=== PATIENT | female | born 1995 ===

== ENCOUNTER → 2023-09-14 12:46 | Outpatient (BNVA) | payer OTHER, SELFPAY | PROVIDERS: Visit Provider Surgery ==

== ENCOUNTER 2023-10-23 11:24 | Outpatient (AMB) | payer OTHER, SELFPAY ==
--- NOTE | 2023-10-23 12:04 | MHC.OFFVISWM ---
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 36.1 Allergies No Known Allergies Allergy (Verified 10/23/23 12:04) Medication List - Last Reconciled 10/23/23 by Roberth Roque MD polysaccharide iron complex (Ferrex) 150 mg PO DAILY HPI TV SE[employer] MACH[employer] W[employer] SWL BMI 36.1 HPI Details Start time: 12pm, End time: 12.35pm ?I spent 30 minutes speaking with the patient on the phone plus an additional 5 minutes reviewing and updating records for a total of 35 minutes HPI Comments History of Present Illness Details Previous weight loss efforts: keto diet, Herbalife, Fasting Wakes up: 6am, Sleeps: 11pm Breakfast: skips Lunch: 12pm (rice, beans, meat, pasta, fast food) Dinner: 7pm (rice, beans and meat) Snacks: 4pm (chips, pretzels, hummus), 8pm (chocolate and ice cream) Exercise: none Fluids: Fluids: none, tea: 4/wk 1 cup/d (Starbucks), soda: Regular Coke daily, juice: Brisk, ETOH: rare PFSH Medical History (Updated 10/23/23 @ 12:15 by Roberth Roque MD) GERD (gastroesophageal reflux disease) Assessment & Plan Assessment & Plan (1) Obesity: Code(s): E66.9 - Obesity, unspecified Qualifiers: Obesity type: due to excess calories Obesity classification: adult class 2 (BMI 35 - 39.9) Serious obesity comorbidity presence: without serious comorbidity Body mass index: BMI 36.0-36.9 Qualified Code(s): E66.09 - Other obesity due to excess calories; Z68.36 - Body mass index [BMI] 36.0-36.9, adult Plan: 1.? Plan for lap sleeve gastrectomy. If diaphragmatic or ventral hernias are present at time of surgery, these will be repaired laparoscopically as well. Risks and complications were discussed in detail including possible conversion to an open procedure, anastomotic leak, bleeding requiring transfusion, small bowel obstruction, , DVT and pulmonary embolism, cardiac, or pulmonary complications, as mcc complications such as anastomotic ulcer, insufficient weight loss and vitamin deficiencies. I emphasized the importance of close follow-up, adherence to instructions and good communication. 2. Nutritional counseling. Start with 2 CELEBRATE REBUILD protein (buy at [facility] [employer]) shakes (HALF scoop EACH in 8oz low fat unsweetened almond milk each) at 7am-9am and 10am-12pm, 2 protein bars (CELEBRATE protein bars, buy at [facility] [employer]) at 1pm-3pm and 4pm-6pm, dinner at 7pm (8 forks of protein and 8 forks of salad/vegetables) AND one more protein bar after dinner at 9pm-11pm. So you do 2 protein shakes, 3 protein bars and one meal per day. Meal to include lean meat (beef, fish, pork, turkey, chicken), or [place] yogurt, or egg whites, or beans with a salad with olive oil and fruits (berries, pears, apples, kiwi). Avoid salt, breads, potatoes, rice, pasta, desserts. 3. Each shake would be drunk slowly, like coffee in a period of 2 hours. 4. Cut each bar in 4 pieces and eat each piece in 30min ?to make each bar last 2 hours. 5. I emphasized the importance of measuring accurately the food portion and measure it when serving the food in plate 6. The meal portions include 8 full-size forks of meat and 8 full-size forks of salad. You always eat the meat portion but you can replace up to 4 forks for salad/vegetables with rice, potatoes or pasta, or a fruit ?if you like. The less you do it the better weight loss will be. 7. One full-size fork is what it can be scooped on the fork without falling aside and not what can be bit with the fork. Use regular forks like those you find in a typical restaurant. 8.? Please send me weight measurements as soon as possible and then once a week. Always include your diet and exercise plan. 9. Start walking outside daily, tracking calories with a goal of 300 calories per day, daily. Goal is to burn 2000 calories per week on exercise, which means either 300 calories daily, or 400 calories 5 days per week, or 500 calories 4 days per week, or 650 calories 3 days per week. 10. The best choice would be to purchase a stationary bike, elliptical or treadmill at home that can track calories. Let me know if you do so I can give you an exercise plan. 11.?It is important of avoiding and for at least 18 months postoperatively and has been discussed at the infosession. 12. Goal is to lose at least 1.5-2lbs per week 13. Goal to lose 10% of your weight before surgery, which is about 22lbs. Ultimate weight goal: 198lbs before surgery 14. Please follow the diet plan exactly without any change. If you don't like something about the plan or you feel hungry you need to communicate with me so I can help you revise the plan. You should not change the plan yourself. Orders: Orders Insulin Today E66.9 - Obesity, unspecified, K21.9 - Gastro-esophageal reflux disease without esophagitis Hemoglobin A1c Today E66.9 - Obesity, unspecified, K21.9 - Gastro-esophageal reflux disease without esophagitis H Pylori Breath Test Today E66.9 - Obesity, unspecified, K21.9 - Gastro-esophageal reflux disease without esophagitis Complete Blood Count Auto Diff Today E66.9 - Obesity, unspecified, K21.9 - Gastro-esophageal reflux disease without esophagitis IRON PROFILE Today E66.9 - Obesity, unspecified, K21.9 - Gastro-esophageal reflux disease without esophagitis Comprehensive Met. Panel Today E66.9 - Obesity, unspecified, K21.9 - Gastro-esophageal reflux disease without esophagitis C Reactive Protein Today E66.9 - Obesity, unspecified, K21.9 - Gastro-esophageal reflux disease without esophagitis US abdomen comp w elastography Today E66.9 - Obesity, unspecified, K21.9 - Gastro-esophageal reflux disease without esophagitis ECG 12 lead EKG Today E66.9 - Obesity, unspecified, K21.9 - Gastro-esophageal reflux disease without esophagitis FL upper GI w air Today E66.9 - Obesity, unspecified, K21.9 - Gastro-esophageal reflux disease without esophagitis Lipid Panel Today E66.9 - Obesity, unspecified, K21.9 - Gastro-esophageal reflux disease without esophagitis Vitamin B12 and Folate Today E66.9 - Obesity, unspecified, K21.9 - Gastro-esophageal reflux disease without esophagitis Zinc Today E66.9 - Obesity, unspecified, K21.9 - Gastro-esophageal reflux disease without esophagitis Vitamin B1 Today E66.9 - Obesity, unspecified, K21.9 - Gastro-esophageal reflux disease without esophagitis Vitamin A Today E66.9 - Obesity, unspecified, K21.9 - Gastro-esophageal reflux disease without esophagitis TSH reflex Free T4 Today E66.9 - Obesity, unspecified, K21.9 - Gastro-esophageal reflux disease without esophagitis Ferritin Today E66.9 - Obesity, unspecified, K21.9 - Gastro-esophageal reflux disease without esophagitis Vitamin D 25-OH Total Today E66.9 - Obesity, unspecified, K21.9 - Gastro-esophageal reflux disease without esophagitis XR chest 2V Today E66.9 - Obesity, unspecified, K21.9 - Gastro-esophageal reflux disease without esophagitis Referrals Nutrition/Dietitian Referral E66.9 - Obesity, unspecified, K21.9 - Gastro-esophageal reflux disease without esophagitis Behavioral Health Referral E66.9 - Obesity, unspecified, K21.9 - Gastro-esophageal reflux disease without esophagitis Telehealth Telehealth Location of provider rendering services: practice address Location of patient: address on file Patient Identification confirmed using: Name, : Yes Telehealth method: voice only Patient verbally consented to treatment: Yes Patient verbally consented to billing insurance company: Yes Patient informed of any privacy concerns related to visit: Yes Minutes spent on Phone/Video with Pt.: 35 Coding Level of Care Code Tele [facility] Pt Level 3 (36033) Diagnoses Class 2 obesity due to excess calories without serious comorbidity with body mass index (BMI) of 36.0 to 36.9 in adult E66.09; Z68.36 Obesity type: due to excess calories Obesity classification: adult class 2 (BMI 35 - 39.9) Serious obesity comorbidity presence: without serious comorbidity Body mass index: BMI 36.0-36.9 Time Spent (min) 35
[2023-10-23 12:13] VITALS: BMI 36.1
== END 2023-10-23 12:36 | disposition home or self-care (01) ==
LOC: HO.HBS 11:24
PROVIDERS: Visit Provider Surgery
DX: E66.09 Other obesity due to excess calories (principal); Z68.36 Body mass index [BMI] 36.0-36.9, adult
CPT/HCPCS: 99203

== ENCOUNTER → 2023-10-23 11:24 | Outpatient (BNVA) | payer OTHER, SELFPAY | PROVIDERS: Visit Provider Surgery ==

== ENCOUNTER 2023-10-26 12:18 | Outpatient (REF) | payer OTHER, SELFPAY ==
--- NOTE | ~2023-10-26 | XR_ITS ---
EXAMINATION: XR CHEST CLINICAL INFORMATION: Preop for weight management. COMPARISON: None available. TECHNIQUE: 2 views of the chest were obtained. FINDINGS: No pleural effusion. Mild degenerative changes in the thoracic spine. There is no gross pneumothorax. Heart size is normal. No pleural effusion. No focal consolidation to suggest pneumonia. XR/XR chest 2V IMPRESSION: No evidence of pneumonia.
--- NOTE | 2023-10-26 12:25 | ECG_ITS ---
Test Reason : OBESITY Blood Pressure : / mmHG Vent. Rate : 061 BPM Atrial Rate : 061 BPM P-R Int : 140 ms QRS Dur : 086 ms QT Int : 408 ms P-R-T Axes : 067 055 052 degrees QTc Int : 410 ms Normal sinus rhythm Normal ECG No previous ECGs available Referred By: Roberth Roque Electronically Signed By:Cleve Acevedo
[2023-10-26 12:36] LABS: MANUAL DIFF FLAG NO
[2023-10-26 12:59] LABS: Basophils Absolute Auto 0.1 X10*3/uL (0.0-0.2); Basophils Percent Auto 0.8 % (0-2); Eosinophils Absolute Auto 0.4 X10*3/uL (0.0-0.4); Eosinophils Percent Auto 3.9 % (0-4); Hematocrit 38.1 % (37.0-47.0); Hemoglobin 11.9 g/dl (12.0-16.0); Imm Gran Abs Auto 0.03 X10*3/uL (0.00-0.03); Imm Gran Pct Auto 0.3 % (0.0-0.4); Lymphocytes Absolute Auto 2.6 X10*3/uL (1.2-4.9); Lymphocytes Percent Auto 28.8 % (20-40); Mean Corpuscular HGB Conc 31.2 g/dl (31.0-35.0); Mean Corpuscular Hemoglobin 26.7 pg (27.0-33.0); Mean Corpuscular Volume 85.6 fL (80.0-98.0); Mean Platelet Volume 10.5 fL (9.4-12.3); Monocytes Absolute Auto 0.6 X10*3/uL (0.1-1.2); Monocytes Percent Auto 6.8 % (2-11); Neutrophils Absolute Auto 5.3 x10*3/uL (2.0-8.3); Neutrophils Percent Auto 59.4 % (45-73); Platelet Count 313 X10*3/uL (160-400); Red Blood Count 4.45 X10*6/uL (4.20-5.50); Red Cell Distribution Width 13.5 % (11.0-16.0)
[2023-10-26 13:21] LABS: Estimated Average Glucose 100 mg/dL; Hemoglobin A1c % 5.1 % (<6.0)
[2023-10-26 13:27] LABS: Alanine Aminotransferase 17 U/L (0-31); Albumin Level 4.1 g/dL (3.5-5.0); Alkaline Phosphatase 95 U/L (39-117); Anion Gap 13 (12-20); Aspartate Amino Transferase 13 U/L (5-31); Bilirubin Total 0.4 mg/dL (0.0-1.0); Blood Urea Nitrogen 19 mg/dL (9-16); C Reactive Protein 0.55 mg/dL (< or = 0.50); Calcium 9.8 mg/dL (8.4-10.2); Carbon Dioxide 24 mmol/L (22-29); Chloride 104 mmol/L (96-108); Cholesterol 143 mg/dL (<200); Estimated Glomerular Filt Rate > 60; Glucose Random 83 mg/dL (60-115); HDL Cholesterol 47 mg/dL (>40); Iron 63 mcg/dL (30-160); LDL Cholesterol Calculated 87 mg/dL (<100); Percent Iron Saturation 17 % (15-50); Potassium 4.4 mmol/L (3.3-5.1); Sodium 137 mmol/L (135-145); Total Iron Binding Capacity 368 mcg/dL (228-428); Total Protein 7.4 g/dL (6.5-8.0); Triglycerides 48 mg/dL (<150); Unsaturated Iron Binding 305 ug/dL
[2023-10-26 13:47] LABS: Ferritin 14 ng/mL (10-122); Insulin 6 uU/mL (2-29); Vitamin D 25-OH Total 13.7 ng/mL (>30)
[2023-10-26 13:58] LABS: Folate 7.7 ng/mL (> or = 4.0); Vitamin B12 291 pg/mL (200-900)
[2023-10-30 01:24] LABS: Zinc 65 mcg/dL (60-130)
[2023-10-30 23:28] LABS: Vitamin A 27 mcg/dL (38-98)
[2023-11-01 15:28] LABS: Vitamin B1 11 nmol/L (8-30)
== END 2023-10-26 12:19 | disposition home or self-care (01) ==
LOC: HO.LAB 12:18
PROVIDERS: Visit Provider Surgery
DX: E66.9 Obesity, unspecified (principal); K21.9 Gastro-esophageal reflux disease without esophagitis
CPT/HCPCS: 36415; 71046; 80053; 80061; 82306; 82607; 82728; 82746; 83036; 83525; 83540; 84425; 84443; 84590; 84630; 85025; 86140; 93005

== ENCOUNTER → 2023-10-26 12:25 | Outpatient (BNV) | payer OTHER, SELFPAY | PROVIDERS: Visit Provider Internal Medicine Cardiovascular Disease | DX: Z01.810 Encounter for preprocedural cardiovascular examination (principal) | CPT/HCPCS: 93010 ==

== ENCOUNTER 2023-11-09 07:56 | Outpatient (REF) | payer OTHER, SELFPAY ==
[2023-11-10 12:12] LABS: H Pylori Breath Test Negative (Negative)
== END 2023-11-09 07:57 | disposition home or self-care (01) ==
LOC: HO.LNP 07:56
PROVIDERS: Visit Provider Surgery
DX: E66.09 Other obesity due to excess calories (principal); Z68.36 Body mass index [BMI] 36.0-36.9, adult; K21.9 Gastro-esophageal reflux disease without esophagitis
CPT/HCPCS: 83013; 99211

== ENCOUNTER 2023-11-09 07:56 | Outpatient (AMB) | payer OTHER, SELFPAY ==
--- NOTE | 2023-11-09 13:34 | A.OFFVIS_ITS ---
Intake VS Expanded 11/09/23 13:46 Height 5 ft 5.5 in Weight 217 lb BMI 35.6 Body Fat % 42.2 Body Fat Mass 91.4 Fat Free Mass 125.4 Visceral Fat Rating 8 Body Water % 41.6 Body Water Mass 90.2 Basal Metabolic Rate/Score 1,780 Intake Visit Reasons: TV Follow Up SWL - 1ST Allergies No Known Allergies Allergy (Verified 10/23/23 12:04) HPI TV Follow Up SWL - 1ST HPI Details Start time: 1.31pm, End time: 1.49pm ?I spent 13 minutes speaking with the patient on the phone plus an additional 5 minutes reviewing and updating records for a total of 18 minutes HPI Comments History of Present Illness Details Overall weight loss: 3.2lbs, or 1.5% TBWL Is doing 2 Celebrate Rebuild protein shakes (HALF scoop in almond milk), 2 Celebrate protein bars and one meal (8 forks of protein and 8 forks of salad or vegetables) Exercise: Walking outside [facility] Medical History (Updated 10/23/23 @ 12:15 by Roberth Roque MD) GERD (gastroesophageal reflux disease) Assessment & Plan Assessment & Plan (1) Obesity: Code(s): E66.9 - Obesity, unspecified Qualifiers: Obesity type: due to excess calories Obesity classification: adult class 2 (BMI 35 - 39.9) Serious obesity comorbidity presence: without serious comorbidity Body mass index: BMI 36.0-36.9 Qualified Code(s): E66.09 - Other obesity due to excess calories; Z68.36 - Body mass index [BMI] 36.0-36.9, adult Plan: 1. Continue same nutritional plan of 2 Celebrate Rebuild protein shakes (HALF scoop in almond milk), 2 Celebrate protein bars and one meal (8 forks of protein and 8 forks of salad or vegetables) 2. Purchase a stationary bike and burn 300 calories per day, daily 3. Send me weight measurements weekly Telehealth Telehealth Location of provider rendering services: practice address Location of patient: address on file Patient Identification confirmed using: Name, : Yes Telehealth method: voice only Patient verbally consented to treatment: Yes Patient verbally consented to billing insurance company: Yes Patient informed of any privacy concerns related to visit: Yes Minutes spent on Phone/Video with Pt.: 18 Coding Level of Care Code Tele Est Pt Level 2 (06603) Diagnoses Class 2 obesity due to excess calories without serious comorbidity with body mass index (BMI) of 36.0 to 36.9 in adult E66.09; Z68.36 Obesity type: due to excess calories Obesity classification: adult class 2 (BMI 35 - 39.9) Serious obesity comorbidity presence: without serious comorbidity Body mass index: BMI 36.0-36.9 Time Spent (min) 18
[2023-11-09 13:46] VITALS: BMI 35.6
== END 2023-11-09 13:49 | disposition home or self-care (01) ==
LOC: HO.HBS 07:56
PROVIDERS: Visit Provider Surgery
DX: E66.09 Other obesity due to excess calories (principal); Z68.36 Body mass index [BMI] 36.0-36.9, adult
CPT/HCPCS: 99212

== ENCOUNTER 2023-11-16 14:42 | Outpatient (AMB) | payer OTHER, SELFPAY ==
--- NOTE | 2023-11-16 14:23 | MHC.AMNUTRGE ---
Intake Intake Visit Reasons: VIDEO Initial Nutrition [employer] Allergies No Known Allergies Allergy (Verified 10/23/23 12:04) HPI Nutrition Presentation Reason for consult elevated BMI Diet Assmnt Details In the beginning of the program, felt the plan was difficult in the beginning dinner: zucchini and chicken or pasta and chicken or salad and chicken. wants ideas to help with variety. She also reports hx of emotional eating (sadness) but she now understands this is a habit she needs to work on. [employer] online classes: none, was having issues accessing them, reached out to the office but never got a response. 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 [facility] [employer] program in [place] but got worried about surgery and dropped out Dietary counseling reduction Who buys your food self Who prepares/cooks your food self Meal frequency regular: lunch, dinner (11pm ) and snacks (during work - chips, mario hummus, ccandy ) and never: breakfast Lifestyle Eating out 4 or more times/week Food frequency Dairy: several times weekly (almond/or oatmilk ), Fruit: several times weekly, Vegetables: several times weekly, Grains/pasta/breads/cereal (carbs): daily, Meats/poultry/fish (protein): daily, Meat substitutes/nuts/seeds/legumes: daily, Processed foods/meats: daily (likes tuna but dislikes all other ), Water: daily, Soda: daily, Juice: daily, Coffee: never and Sports/energy drinks: never Diagnosis Nutrition problem #1 overweight/obesity As related to (etiology) #1 excess energy intake and physical inactivity As evidenced by (sign/symptom) #1 high BMI Monitoring/Goals Nutrition problem monitoring total energy intake, level of knowledge/skill, total PRO intake, total CHO intake and weight Outcome progress progressing Learning/Education Readiness to learn excellent Stages of change action Educational materials provided Yes Most Recent Diabetes Results: Cholesterol 143 mg/dL (<200) 10/26/23 HDL Cholesterol 47 mg/dL (>40) 10/26/23 Triglycerides 48 mg/dL (<150) 10/26/23 Creatinine 0.86 mg/dL (0.5-1.4) 10/26/23 Blood Urea Nitrogen 19 mg/dL (9-16) H 10/26/23 Sodium 137 mmol/L (135-145) 10/26/23 Potassium 4.4 mmol/L (3.3-5.1) 10/26/23 Chloride 104 mmol/L (96-108) 10/26/23 Carbon Dioxide 24 mmol/L (22-29) 10/26/23 Calcium 9.8 mg/dL (8.4-10.2) 10/26/23 AST 13 U/L (5-31) 10/26/23 ALT 17 U/L (0-31) 10/26/23 Total Protein 7.4 g/dL (6.5-8.0) 10/26/23 Albumin 4.1 g/dL (3.5-5.0) 10/26/23 [facility] Medical History (Updated 11/09/23 @ 14:06 by Roberth Roque MD) GERD (gastroesophageal reflux disease) Assessment & Plan Assessment & Plan (1) Obesity (BMI 30-39.9): Code(s): E66.9 - Obesity, unspecified Plan provided recipe resources and ideas for meals. Helped her access online classes.. dimitris be seen again when she completes classes for review. Telehealth Telehealth Location of provider rendering services: practice address Location of patient: address on file Patient Identification confirmed using: Name, : Yes Telehealth method: video Patient verbally consented to treatment: Yes Patient verbally consented to billing insurance company: Yes Patient informed of any privacy concerns related to visit: Yes Minutes spent on Phone/Video with Pt.: 30 Coding Level of Care Code Nutr Indiv Intake (37341) Diagnoses Obesity (BMI 30-39.9) E66.9 Time Spent (min) 30
== END 2023-11-16 14:47 | disposition home or self-care (01) ==
LOC: HO.HBS 14:42
PROVIDERS: Visit Provider Dietitian, Registered
DX: E66.9 Obesity, unspecified (principal)

== ENCOUNTER → 2023-11-16 14:42 | Outpatient (BNVA) | payer OTHER, SELFPAY | PROVIDERS: Visit Provider Dietitian, Registered | DX: E66.9 Obesity, unspecified (principal); Z71.3 Dietary counseling and surveillance | CPT/HCPCS: 97802 ==

== ENCOUNTER 2023-11-27 12:48 | Outpatient (AMB) | payer OTHER, SELFPAY ==
--- NOTE | 2023-11-27 12:45 | A.OFFWM_ITS ---
Intake Intake Visit Reasons: VIDEO Intake Allergies No Known Allergies Allergy (Verified 10/23/23 12:04) [facility] Medical History (Updated 11/27/23 @ 13:15 by More Merida) GERD (gastroesophageal reflux disease) Behavioral Health Assessment Weight Management Therapy Therapy Notes Details Pt is looking to have weight loss surgery evaluation to help improve her health and quality of life. Pt stated that she has never gone to therapy and has had some difficulties with feeling insecure about her body and her weight. She has no history of problems with drugs or alcohol. No legal involvement and no hx of inpatient psychiatric. Presenting Concerns Referral Source provider Reason for referral weight loss surgery evaluation Precipitating Event obesity Living Situation Current Living Situation Rent At risk of losing current housing? No Satisfied with current living situation? Yes Comments Pt lives with her fimerari. Food/Weight/Diet Expectations of change weight loss and maintenance History/Relationship with food Pt stated that she would emotionally eat in the past for comfort. Fast food, candy, Malay food. She would snack into the evening. Also eats fast. History/Relationship with weight Pt is at her heaviest around 225lbs. At her lowest she was 150lbs from age 10 until college. Then she went up to 176 through her 20's, after the pandemic she reached 200lbs. History/Relationship with dieting various diets Binge Eating Do you frequently eat large amounts of food in short periods of time, not feeling physically hungry? No Do you feel out of control when you eat a large amount of food in a short period of time? No Do you eat large amounts of food rapidly and typically alone? Yes Night Eating Do you wake up at least once during the night to eat? No If you wake up in the night, do you find that it is necessary to eat something in order to fall back asleep? No Do you have little or no appetite in the morning and feel very hungry in the evening, often overeating between dinner and when you go to bed? Yes Social History Family history and relationship Pt is single and lives with her fiance. She was born and raised in [facility] by her mother and father who were not together but co parented. She has two brothers from her mother and from her father she has 5 siblings. She is the only child of the same parents. Parental/Familial recreational counselor obligations none Developmental history and status none known Cultural/Ethnic information Legal Involvement and History Current or historical involvement with the legal system? none reported Education Highest grade completed technical medical school for phlebotomy. Preferred learning style Auditory, Verbal, Written, Learn by doing and Visual Currently enrolled in educational program? No Interested in further educational program? No Educational Interests/Skills Starting work at [employer] [place] on Sunday. 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 Employment Employment Status [employer] Wants help to find employment? No Meaningful activities exercise on the bike, Financial Situation Describe current financial situation Comfortable Financial assistance? None Service Service? No Mental Health and Addiction Treatment Current/Past substance abuse? No Current/Past addictive behavior concerns? No Pain Screening Current pain? Yes Pain in the last few months? No Medications Is the patient compliant with medications? Yes Does the patient have Grier Guardian in place? Not applicable Does the patient use complimentary health approaches? No Trauma/Abuse History History of trauma? Yes Questionnaires PHQ-9 Over the last 2 weeks, how often have you been bothered by any of the following problems? 1. Little interest or pleasure in doing things: several days 2. Feeling down, depressed, or hopeless: several days 3. Trouble falling or staying asleep, or sleeping too much: nearly every day 4. Feeling tired or having little energy: nearly every day 5. Poor appetite or overeating: several days 6. Feeling bad about yourself - or that you are a failure or have let yourself or your family down: several days 7. Trouble concentrating on things, such as reading the newspaper or watching television: not at all 8. Moving or speaking so slowly that other people could have noticed. Or the opposite - being so fidgety or restless that you have been moving around a lot more than usual: not at all 9. Thoughts that you would be better off or of hurting yourself in some way: not at all Total score: 10 Source: Developed by Drs. Rene Quigley, Kylah Ren, Cm Brewster and colleagues, with an educational jaylin from [employer]. Binge Eating Scale Group 1 A. I don't feel self-conscious about my wt. or body size when I'm with others. B. I feel concerned about how I look to others, but it normally does not make me fell disappointed with myself C. I do get self-conscious about my appearance and wt. which makes me feel disappointed in myself. D. I feel very self-conscious about my wt. and frequently I feel intense shame and disgust for myself. I try to avoid social contacts because of my self- consciousness. Response Group 1: C Group 2 A. I don't have any difficulty eating slowly in the proper manner. B. Although I seem to gobble down foods, I don't end up feeling stuffed because of eating to much. C. At times, I tend to eat quickly and then, I feel uncomfortably full afterwards. D. I have the habit of bolting down my food, without really chewing it. When this happens I usually feel uncomfortably stuffed because I've eaten to much. Response Group 2: C Group 3 A. I feel capable to control my eating urges when I want to. B. I feel like I have failed to control my eating more than the average person. C. I feel utterly helpless when it comes to feeling in control of my eating urges. D. Because I feel so helpless about controlling my eating I have become very desperate about trying to get control. Response Group 3: C Group 4 A. I don't have the habit of eating when I'm bored. B. I sometimes eat when I'm bored, but often I'm able to get busy and get my mind off food. C. I have a regular habit of eating when I'm bored, but occasionally, I can use some other activity to get my mind off eating. D. I have a strong habit of eating when I'm bored. Nothing seems to help me breath the habit. Response Group 4: D Group 5 A. I'm usually physically hungry when I eat something. B. Occasionally, I eat something on impulse even though I really am not hungry. C. I have the regular habit of eating foods, that I might not really enjoy, to satisfy a hungry feeling even though physically, I don't need the food. D. Although I'm not physically hungry, I get a hungry feeling in my mouth that only seems to be satisfied when I eat a food, like sandwich, that fills my mouth. Sometimes, when I eat the food to satisfy my mouth hunger, I then spit the food out so I won't gain weight. Response Group 5: C Group 6 A. I don't feel any guilt or self-hate after I overeat. B. After I overeat, occasionally I feel guilt or self-hate. C. Almost all the time I experience strong guilt or self-hate after I overeat. Response Group 6: C Group 7 A. I don't lose total control of my eating when dieting even after periods when I overeat. B. Sometimes when I eat a forbidden food on a diet, I feel like I blew it and eat even more. C. Frequently, I have the habit of saying to myself, I've blown it now, why not go all the way, when I overeat on a diet. When that happens I eat more. D. I have a regular habit of starting a strict diets for myself but I break the diets by going on an eating binge. My life seems to be either a feast or famine. Response Group 7: A Group 8 A. I rarely eat so much food that I feel uncomfortably stuffed afterwards. B. Usually about once a month, I each such a quantity of food, I end up feeling very stuffed. C. I have regular periods during the month when I eat large amounts of food, either at mealtime or at snacks. D. I eat so much food that I regularly feel quite uncomfortable after eating and sometimes a bit nauseous. Response Group 8: C Group 9 A. My level of calorie intake does not go up very high or go down very low on a regular basis. B. Sometimes after I overeat, I will try to reduce my caloric intake to almost nothing to compensate for the excess calories I've eaten. C. I have a regular habit of overeating during the night. It seems that my routine is not to be hungry in the morning but overeat in the evening. D. In my adult years, I have had week-long periods where I practically starve myself. This follows periods when I overeat. It seems I live a life of either feast or famine. Response Group 9: C Group 10 A. I usually am able to stop eating when I want to. I know when enough is enough. B. Every so often, I experience a compulsion to eat which I can't seem to control. C. Frequently, I experience strong urges to eat which I seem unable to control, but at other times I can control my eating urges. D. I feel incapable of controlling urges to eat. I have a fear of not being able to stop eating voluntarily. Response Group 10: C Group 11 A. I don't have any problem stopping eating when I feel full. B. I usually can stop eating when I feel full but occasionally overeat leaving me feeling uncomfortably stuffed. C. I have a problem stopping eating once I start and usually I feel uncomfortably stuffed after I eat a meal. D. Because I have a problem not being able to stop eating when I want, I sometimes have to induce vomiting to relieve my stuffed feeling. Response Group 11: A Group 12 A. I seem to eat just as much when I'm with others, Family social gatherings as when I'm by myself. B. Sometimes, when I'm with other persons, I don't eat as much as I want to eat because I'm self-conscious about my eating. C. Frequently, I eat only a small amount of food when others are present, because I'm very embarrassed about my eating. D. I feel so ashamed about overeating that I pick times to overeat when I know no one will see me. I feel like a closet eater. Response Group 12: A Group 13 A. I eat three meals a day with only an occasional between meal snack. B. I eat 3 meals a day, but I also normally snack between meals. C. When I am snacking heavily, I get in the habit of skipping regular meals. D. There are regular periods when I seem to be continually eating, with no planned meals. Response Group 13: B Group 14 A. I don't think much about trying to control unwanted eating urges. B. At least some of the time, I feel my thoughts are pre-occupied with trying to control my eating urges. C. I feel that frequently I spend much time thinking about how much I ate or about trying not to eat anymore. D. It seems to me that most of my waking hours are pre-occupied by thoughts about eating or not eating. I feel like I'm constantly struggling not to eat. Response Group 14: C Group 15 A. I don't think about food a great deal. B. I have strong craving for food but they last only for brief periods of time. C. I have days when I can't seem to think about anything else but food. D. Most of my days seem to be pre-occupied with thoughts about food. I feel like I live to eat. Response Group 15: B Group 16 A. I usually know whether or not I'm physically hungry. I take the right portion of food to satisfy me. B. Occasionally, I feel uncertain about knowing whether or not I'm physically hungry. A these times it's hard to know how much food I should take to satisfy me. C. Even though I might know how many calories I should eat, I don't have any idea what is a normal amount of food for me. Response Group 16: B Binge Eating Score: 24 Score less than 17 Minimal Risk Score between 18-26 Moderate Risk Score between 27-46 High Risk Assessment & Plan Assessment & Plan (1) BMI 36.0-36.9,adult: Code(s): Z68.36 - Body mass index [BMI] 36.0-36.9, adult (2) Depression, unspecified: Code(s): F32.A - Depression, unspecified Plan Patient reported some struggles with emotional eating in the past and insecurities. She is doing well now, would like to join therapy group. She is cleared for surgery and should continue all support services. Telehealth Telehealth Location of provider rendering services: other Location of patient: address on file Patient Identification confirmed using: Name, : Yes Telehealth method: voice only Patient verbally consented to treatment: Yes Patient verbally consented to billing insurance company: Yes Patient informed of any privacy concerns related to visit: Yes Minutes spent on Phone/Video with Pt.: 45 Coding Level of Care Code Tele Psy Diag Eval (03564) Diagnoses BMI 36.0-36.9,adult Z68.36 Depression, unspecified F32.A Time Spent (min) 45
== END 2023-11-27 13:18 | disposition home or self-care (01) ==
LOC: HO.HBST 12:48
PROVIDERS: Visit Provider Counselor Mental Health
DX: Z68.36 Body mass index [BMI] 36.0-36.9, adult (principal); F32.A Depression, unspecified
CPT/HCPCS: 90791

== ENCOUNTER → 2023-11-27 12:48 | Outpatient (BNVA) | payer OTHER, SELFPAY | PROVIDERS: Visit Provider Counselor Mental Health ==

== ENCOUNTER 2023-11-30 09:07 | Outpatient (REF) | payer OTHER, SELFPAY ==
--- NOTE | ~2023-11-30 | US_ITS ---
EXAMINATION: US COMPLETE ABDOMEN WITH LIVER ELASTOGRAPHY CLINICAL INFORMATION: Obesity. COMPARISON: None available. TECHNIQUE: Real-time imaging of the abdominal viscera. Noninvasive ultrasound liver fibrosis assessment is performed using Charito ElastPQ point quantification shear wave elastography (2D-SWE) with a C5-2 MHz transducer. Multiple elastography samples are obtained. FINDINGS: PANCREAS: Poorly visualized. ABDOMINAL AORTA: The proximal, middle, and distal aortic segments appear unremarkable in caliber. INFERIOR VENA CAVA: Visualized portions appear unremarkable. LIVER: Normal. The liver demonstrates normal size, contour and echogenicity. No focal lesion or intrahepatic biliary duct dilatation. The right lobe measures 12.5 cm in length. The left lobe measures 8.9 cm in length. Portal flow is towards the liver (hepatopetal). Shear wave liver elastography median stiffness is 1.47 m/s (reference: normal median stiffness is 1.3 m/s or less). IQR/median stiffness to assess sampling precision is 0.16 (reference: good quality data set is IQR/median stiffness of 0.15 or less). GALLBLADDER: The gallbladder is physiologically distended without evidence of stones, sludge, polyps, wall thickening or pericholecystic fluid. COMMON BILE DUCT: Normal in caliber measuring 0.4 cm in diameter. RIGHT KIDNEY: No hydronephrosis. No renal calculi or focal parenchymal lesion identified. The kidney measures 10.3 cm in maximum dimension. LEFT KIDNEY: No hydronephrosis. No renal calculi or focal parenchymal lesion identified. The kidney measures 10.8 cm in maximum dimension. SPLEEN: The spleen measures 9.2 cm in maximum dimension. FREE FLUID: None. US/US abdomen comp w elastography IMPRESSION: Liver elastography: Although measurements appear to rule out compensated advanced chronic liver disease, there is statistical variability of the sampling which decreases accuracy. REFERENCE: Society of Radiologists in Ultrasound Liver Stiffness Thresholds (2020): LIVER STIFFNESS THRESHOLDS: *Liver Stiffness equal or less than 1.3 m/s: High probability of being normal. *Liver Stiffness less than 1.7 m/s: In the absence of other known clinical signs, rules out compensated advanced chronic liver disease. *Liver Stiffness 1.7-2.1 m/s: Suggestive of compensated advanced chronic liver disease but need further test for confirmation. *Liver Stiffness over 2.1 m/s: Rules in compensated advanced chronic liver disease. *Liver Stiffness over 2.4 m/s: Suggestive of clinically significant portal hypertension. QUALITY OF DATA SET: *IQR/Median value equal or less than 0.15 implies a quality data set. *IQR/Median value over 0.15 implies a poor quality data set. SIGNIFICANT CHANGE FROM PRIOR EXAM: Significant change if liver stiffness measurement is 10% or greater from prior exam. OTHER CONSIDERATIONS: The stage of liver fibrosis may be overestimated in the setting of acute hepatitis, liver inflammation, elevated liver function tests, hepatic vascular congestion, obstructive cholestasis, non-fasting state, and infiltrative diseases such as amyloidosis and lymphoma. In some patients with NAFLD, the liver stiffness thresholds for compensated advanced chronic liver disease may be lower. In causes other than viral hepatitis and NAFLD, liver stiffness thresholds are not well established.
== END 2023-11-30 09:08 | disposition home or self-care (01) ==
LOC: HO.US 09:07
PROVIDERS: Visit Provider Surgery
DX: E66.9 Obesity, unspecified (principal); K21.9 Gastro-esophageal reflux disease without esophagitis
CPT/HCPCS: 76700; 76981

== ENCOUNTER 2023-12-19 08:55 | Outpatient (REF) | payer OTHER, SELFPAY ==
--- NOTE | ~2023-12-19 | FL_ITS ---
EXAMINATION: XR FLUOROSCOPY UPPER GI WITH AIR CLINICAL INFORMATION: Evaluation prior to bariatric surgery COMPARISON: None TECHNIQUE: Fluoroscopic air contrast upper GI examination was performed utilizing standard techniques with thin and thick barium and effervescent granules. Numerous spot images were obtained. FINDINGS: Dual and single contrast images of the esophagus demonstrate normal caliber, contour, and mucosal pattern. No evidence of stricture, mass, or ulcerations identified. Esophageal peristalsis was normal. Very small type I hiatal hernia is present. Significant gastroesophageal reflux is seen up to the thoracic inlet. Dual contrast and single contrast images of the stomach demonstrated a normal contour. The gastric mucosal folds appear mildly thickened. No masses or ulcerations are seen. Contrast freely passed into the gastric antrum and duodenal bulb without delay. Single and air-contrast images of the duodenal bulb demonstrate no abnormality. The duodenal sweep has a normal appearance, course, and mucosal fold appearance. The imaged proximal jejunum has a normal fold pattern and caliber. FLUOROSCOPY TIME: 3 minutes 12 seconds Number of Spot Images: 14 Number of Cine: 9 DOSE AREA PRODUCT: 2170 uGy-m2 (microgray-meter squared) FL/FL upper GI w air IMPRESSION: 1. Very small type I hiatal hernia 2. Severe gastroesophageal reflux 3. Thickened gastric mucosal folds that likely represent gastritis. This procedure was performed by Austyn Kathleen PA-C, and supervised by Dr. Ramos
== END 2023-12-19 08:56 | disposition home or self-care (01) ==
LOC: HO.XRAY 08:55
PROVIDERS: Visit Provider Surgery
DX: K21.9 Gastro-esophageal reflux disease without esophagitis (principal); E66.9 Obesity, unspecified
CPT/HCPCS: 74246

== ENCOUNTER → 2023-12-19 08:56 | Outpatient (BNV) | payer OTHER, SELFPAY | PROVIDERS: Visit Provider Physician Assistant Surgical | DX: Z01.818 Encounter for other preprocedural examination (principal); E66.01 Morbid (severe) obesity due to excess calories | CPT/HCPCS: 74246 ==

== ENCOUNTER 2023-12-31 08:00 | Outpatient (AMB) | payer OTHER, SELFPAY ==
--- NOTE | 2023-12-31 09:30 | A.OFFVIS_ITS ---
Intake VS Expanded 12/31/23 09:38 Height 5 ft 5.5 in Weight 217 lb 5 oz BMI 35.6 Body Fat % 44.9 Body Fat Mass 97.6 Fat Free Mass 119.9 Visceral Fat Rating 17.9 Body Water % 37.8 Body Water Mass 82.2 Basal Metabolic Rate/Score 1,544 Intake Visit Reasons: TV Follow Up SWL Allergies No Known Allergies Allergy (Verified 10/23/23 12:04) HPI TV Follow Up SWL HPI Details Start time: 9.28am, End time: 9.48am ?I spent 15 minutes speaking with the patient on the phone plus an additional 5 minutes reviewing and updating records for a total of 20 minutes HPI Comments History of Present Illness Details Is doing 2 Celebrate Rebuild shakes (1/2 scoop in almond milk), 2 Celebrate protein bars and one meal (8 forks of protein and 8 forks of salad or rice or pasta) Exercise: bike for 600 calories per week [facility] Medical History (Updated 11/27/23 @ 13:15 by More Merida) GERD (gastroesophageal reflux disease) Assessment & Plan Assessment & Plan (1) Obesity: Code(s): E66.9 - Obesity, unspecified Qualifiers: Obesity type: due to excess calories Obesity classification: adult class 2 (BMI 35 - 39.9) Serious obesity comorbidity presence: without serious comorbidity Body mass index: BMI 36.0-36.9 Qualified Code(s): E66.09 - Other obesity due to excess calories; Z68.36 - Body mass index [BMI] 36.0-36.9, adult Plan: 1. Change nutritional plan to two Celebrate Rebuild protein shakes (1/2 scoop in 8oz almond milk) at 7-9 and 10-12, 2 Celebrate protein bars at 1-3pm and 4-6pm, dinner at 7pm (8 forks of protein and 8 forks of salad, or 4 forks of salad and 4 forks of rice) and one more Celebrate bar at 9-11pm 2. Exercise: do the bike daily for 300 calories. Goal is to burn 2000 calories per week on the bike 3. Send me weight measurements weekly on Saturdays Telehealth Telehealth Location of provider rendering services: practice address Location of patient: address on file Patient Identification confirmed using: Name, : Yes Telehealth method: voice only Patient verbally consented to treatment: Yes Patient verbally consented to billing insurance company: Yes Patient informed of any privacy concerns related to visit: Yes Minutes spent on Phone/Video with Pt.: 20 Coding Level of Care Code Tele Est Pt Level 3 (13132) Diagnoses Class 2 obesity due to excess calories without serious comorbidity with body mass index (BMI) of 36.0 to 36.9 in adult E66.09; Z68.36 Obesity type: due to excess calories Obesity classification: adult class 2 (BMI 35 - 39.9) Serious obesity comorbidity presence: without serious comorbidity Body mass index: BMI 36.0-36.9 Time Spent (min) 20
[2023-12-31 09:38] VITALS: BMI 35.6
== END 2023-12-31 09:49 | disposition home or self-care (01) ==
PROVIDERS: Visit Provider Surgery
DX: E66.09 Other obesity due to excess calories (principal); Z68.36 Body mass index [BMI] 36.0-36.9, adult
CPT/HCPCS: 99213

== ENCOUNTER → 2023-12-31 08:00 | Outpatient (BNVA) | payer OTHER, SELFPAY | PROVIDERS: Visit Provider Surgery ==

== ENCOUNTER 2024-02-01 07:55 | Outpatient (AMB) | payer OTHER, SELFPAY ==
--- NOTE | 2024-02-01 08:56 | A.OFFVIS_ITS ---
VS Expanded 02/01/24 09:05 Height 5 ft 5.5 in Weight 209 lb 3 oz BMI 34.3 Body Fat % 42.7 Body Fat Mass 89.3 Fat Free Mass 119.9 Visceral Fat Rating 16.7 Body Water % 39.3 Body Water Mass 82.2 Basal Metabolic Rate/Score 1,544 Intake Visit Reasons: TV Pre Op LSG 02/12/24 Allergies No Known Allergies Allergy (Verified 02/01/24 08:57) Medication List - Last Reconciled 02/01/24 by Roberth Roque MD cholecalciferol (vitamin D3) 125 mcg PO DAILY iron,carbonyl-vitamin C 65 mg iron- 125 mg (Vitron-C) 1 tab PO DAILY mecobalamin (vitamin B12) 1,000 mcg sublingual DAILY ondansetron 4 mg PO Q12H pantoprazole 40 mg PO DAILY polyethylene glycol 3350 (Miralax) 17 grams PO DAILY polysaccharide iron complex (Ferrex) 150 mg PO DAILY sucralfate 10 mL PO BID vitamin A palmitate 10,000 units PO DAILY HPI HPI TV Pre Op LSG 02/12/24: Details: Start time: 8.53am, End time: 9.13am ?I spent 15 minutes speaking with the patient on the phone plus an additional 5 minutes reviewing and updating records for a total of 20 minutes HPI Comments Details: Overall weight loss: 10.9lbs, or 4.95% TBWL Is doing 2 Celebrate Rebuild shakes (1/2 scoop in almond milk), 2 Celebrate protein bars and one meal (8 forks of protein and 8 forks of salad or rice or pasta) Exercise: bike for 600 calories per week [facility] Medical History (Updated 11/27/23 @ 13:15 by More Merida) GERD (gastroesophageal reflux disease) Telehealth Telehealth Telehealth Platform: Telephone Location of provider rendering services: practice address Location of patient: address on file Patient Identification confirmed using: Name, : Yes Telehealth method: voice only Patient verbally consented to treatment: Yes Patient verbally consented to billing insurance company: Yes Patient informed of any privacy concerns related to visit: Yes Minutes spent on Phone/Video with Pt.: 20 Assessment & Plan Assessment & Plan (1) Obesity: Code(s): E66.9 - Obesity, unspecified Category: Medical Qualifiers: Obesity type: due to excess calories Obesity classification: adult class 2 (BMI 35 - 39.9) Serious obesity comorbidity presence: without serious comorbidity Body mass index: BMI 36.0-36.9 Qualified Code(s): E66.09 - Other obesity due to excess calories; Z68.36 - Body mass index [BMI] 36.0-36.9, adult Plan: 1. Plan for lap sleeve gastrectomy including upper GI endoscopy. All tests has been completed and reviewed and the patient is cleared for the surgery. ?If diaphragmatic or ventral hernias are present at time of surgery, these will be repaired laparoscopically as well. Risks and complications were discussed in detail including possible conversion to an open procedure, anastomotic leak, bleeding requiring transfusion, small bowel obstruction, , DVT and pulmonary embolism, cardiac, or pulmonary complications, as ferry terminal supervisor complications such as anastomotic ulcer, insufficient weight loss and vitamin deficiencies. I emphasized the importance of close follow-up, adherence to instructions and good communication. So far she has proven to be an excellent communicator and very compliant with all our directions accomplishing a great weight loss. I believe that she is an excellent candidate and she is ready. 2. Preop prescriptions were provided and explained the purpose of each one. Need to be purchased preop. Start Pantoprazole now as you get it from the pharmacy, 1 pill per day. Sucralfate and Zofran are for after surgery as needed. 3. Bowel prep: please do 7 packets ?of Miralax mixing each one with a an 8oz glass of water, crystal light, gatorade zero, or propel ?on 02/10/24 and the same amount on 02/11/24. The Miralax you begin with one packet at a time in 8oz water or crystal light, gatorade zero, or propel ?as early in the day as you can and you do them back to back until you finish them. Continue the protein shakes during? the bowel prep. 4. Needs to purchase 1oz medicine cups . 5. Needs to purchase Children's liquid Tylenol for postop pain control. 6. Avoid aspirin, motrin, Advil, Aleve, Ibuprofen, Naproxyn. Tylenol is OK. 7. She needs to purchase the Celebrate 4:1 protein shakes from the hospital's gift shop. 8. Will do basic preop blood work-up any day between Sunday02/04/24 and Sunday02/08/24 fasting for 12 hours and is scheduled to see the Anesthesiologist prior to the day of surgery. 9. Importance of adherence to postop folllow-up and recommendations was underscored and she understands that. 10. Stop food and bars as of tomorrow 02/02/24 and continue with 3 Celebrate Rebuild protein shakes (ONE scoop EACH in 8oz almond milk) at 8am-10am, 11am-1pm and 2pm-4pm and TWO more Celebrate Rebuild protein shake with TWO scoops EACH in 8oz of almond milk at 5pm-7pm and 8pm-10pm 11. No soups, broths or V8 12. The patient's?medical?history has been reviewed and they are considered low risk for post op DVT and therefore DVT prophylaxis is not considered necessary. Travel after surgery was reviewed. The patient has not disclosed any travel plans during the first 30 days after surgery and they have been advised that within the first 30 days after surgery any bus, plane, train or car travel over 2 hours in duration is contraindicated due to the possibility of developing blood clots from immobility. Any travel, needs to include periods of ambulation of 10 minutes in duration every 2 hours.? Patient was instructed to discuss any plans for travel during this period with their bariatric surgeon.? 13. Please take at the day of surgery the following medications: NONE 14. Stop any control pills and don't use them for one month after surgery 15. Absolutely no smoking or vaping, or marijuana until the surgery and for at least the first 4 weeks. Only nicotine patches are allowed. 16. Send me weight measurements today 02/01/24, on Sunday02/09/24 and then on Sunday02/12/24, the day of surgery before you go to the hospital. 17. Avoid any steroids by mouth for any reason. Let me know if someone prescribes them to you20. These instructions supersede anything else you read in the handbook, anything you watched in videos or classes or you were told by any other provider. If there is any conflict, you follow the above instructions Orders: Orders Comprehensive Met. Panel Today Prothrombin Time INR Today Partial Thromboplastin Time Today Complete Blood Count Auto Diff Today Hemoglobin A1c Today Insulin Today TSH reflex Free T4 Today Type and Screen Today C Reactive Protein Today Lipid Panel Today Medications: New ondansetron Only take one every 12 hours as needed if you have nausea 4 mg PO Q12H 20 tabs 0RF nausea and vomiting R11.0 - Nausea polyethylene glycol 3350 (Miralax) Mix each packet with 8oz of water, Crystal light, or Gatorade zero, or Propel and do 7 packets on 02/10/24 and another 7 packets on 02/11/24 17 grams PO DAILY 14 ea 0RF Z01.818 - Encounter for other preprocedural examination pantoprazole 40 mg PO DAILY 90 tabs 0RF K21.9 - Gastro-esophageal reflux disease without esophagitis sucralfate 10 mL PO BID 600 mL 2RF K21.9 - Gastro-esophageal reflux disease without esophagitis
[2024-02-01 09:05] VITALS: BMI 34.3
== END 2024-02-01 09:14 | disposition home or self-care (01) ==
LOC: HO.HBS 07:55
PROVIDERS: Visit Provider Surgery
DX: E66.09 Other obesity due to excess calories (principal); Z68.36 Body mass index [BMI] 36.0-36.9, adult
CPT/HCPCS: 99213

== ENCOUNTER → 2024-02-01 07:55 | Outpatient (BNVA) | payer OTHER, SELFPAY | PROVIDERS: Visit Provider Surgery ==

== ENCOUNTER → 2024-02-08 07:36 | Outpatient (BNVA) | payer OTHER, SELFPAY | PROVIDERS: Visit Provider Physician Assistant Surgical ==

== ENCOUNTER 2024-02-12 07:28 | Day surgery (SDC) | payer OTHER, SELFPAY ==
[2024-02-04 16:06] VITALS: BMI 33.9
[2024-02-08 07:33] LABS: MANUAL DIFF FLAG NO
[2024-02-08 07:48] LABS: Basophils Absolute Auto 0.1 X10*3/uL (0.0-0.2); Basophils Percent Auto 0.8 % (0-2); Eosinophils Absolute Auto 0.3 X10*3/uL (0.0-0.4); Eosinophils Percent Auto 4.6 % (0-4); Hematocrit 36.3 % (37.0-47.0); Hemoglobin 11.5 g/dl (12.0-16.0); Imm Gran Abs Auto 0.01 X10*3/uL (0.00-0.03); Imm Gran Pct Auto 0.1 % (0.0-0.4); Lymphocytes Absolute Auto 2.3 X10*3/uL (1.2-4.9); Lymphocytes Percent Auto 32.4 % (20-40); Mean Corpuscular HGB Conc 31.7 g/dl (31.0-35.0); Mean Corpuscular Hemoglobin 25.3 pg (27.0-33.0); Mean Corpuscular Volume 79.8 fL (80.0-98.0); Mean Platelet Volume 10.2 fL (9.4-12.3); Monocytes Absolute Auto 0.6 X10*3/uL (0.1-1.2); Monocytes Percent Auto 7.8 % (2-11); Neutrophils Absolute Auto 3.9 x10*3/uL (2.0-8.3); Neutrophils Percent Auto 54.3 % (45-73); Platelet Count 343 X10*3/uL (160-400); Red Blood Count 4.55 X10*6/uL (4.20-5.50); Red Cell Distribution Width 14.8 % (11.0-16.0); White Blood Count 7.2 X10*3/uL (4.8-10.8)
[2024-02-08 07:51] LABS: INTERNATIONAL NORM RATIO 1.1 (0.9-1.1); Prothrombin Time 13.7 SEC (11.1-13.3)
[2024-02-08 07:54] LABS: Partial Thromboplastin Time 33.9 SEC (26.0-36.8)
[2024-02-08 07:55] LABS: Estimated Average Glucose 100 mg/dL; Hemoglobin A1c % 5.1 % (<6.0)
[2024-02-08 08:20] LABS: Alanine Aminotransferase 19 U/L (0-31); Albumin Level 4.4 g/dL (3.5-5.0); Alkaline Phosphatase 96 U/L (39-117); Anion Gap 17 (12-20); Aspartate Amino Transferase 20 U/L (5-31); Bilirubin Total 0.3 mg/dL (0.0-1.0); Blood Urea Nitrogen 13 mg/dL (9-16); C Reactive Protein 0.67 mg/dL (< or = 0.50); Calcium 9.7 mg/dL (8.4-10.2); Carbon Dioxide 19 mmol/L (22-29); Chloride 108 mmol/L (96-108); Cholesterol 138 mg/dL (<200); Creatinine Clr Calc Pharmacy 101.8; Estimated Glomerular Filt Rate > 60; Glucose Random 87 mg/dL (60-115); HDL Cholesterol 54 mg/dL (>40); LDL Cholesterol Calculated 73 mg/dL (<100); Potassium 3.8 mmol/L (3.3-5.1); Sodium 140 mmol/L (135-145); Total Protein 7.7 g/dL (6.5-8.0); Triglycerides 58 mg/dL (<150)
[2024-02-08 08:34] LABS: Insulin 9 uU/mL (2-29); TSH reflex Free T4 1.49 uIU/mL (0.32-4.0)
--- NOTE | 2024-02-11 09:33 | P.CONAN_ITS ---
Documented by User: Izabel Tirado NP 02/11/24 09:34 HPI - Anesthesia Eval Consult details Narrative: 28yo F for Gastrectomy Sleeve,EGD,possible diaphragmatic hernia,possible ventral hernia,possible open, PMFSH Active Problems Active Problems: All Active Problems Depression, unspecified (Acute) Anemia (Acute) Vitamin A deficiency (Acute) BMI 36.0-36.9,adult (Acute) Obesity (Acute) GERD (gastroesophageal reflux disease) (Acute) Past Medical History Medical History Anemia Depression GERD (gastroesophageal reflux disease) Surgical History Surgical History No pertinent past surgical history Social History Social History Are you a primary career center director to a significant other at home: No Do you presently have visiting nurse or other home services: No Patient Tobacco Use Status: Former Tobacco user Quit Date: 08/2023 Tobacco use type: Cigarette Use of substances other than those prescribed or required for medical reasons: No Have you been hit, kicked, punched, or otherwise hurt by someone within the past year? If so, by whom?: No Are you DNR?: No Advance Directives: No Advance Directives Information Provided: Yes Advance Directives on File: No Recently lost weight without trying: No Eating poorly because of decreased appetite: No Nutrition Risks: No Nutritional Risk Patient : No FDLMP: 01/21/24 : No Poor oral hygiene: No (bonding upper front two teeth) Meds Allergies Allergy/AdvReac Type Severity Reaction Status Date / Time No Known Allergies Allergy Verified 02/12/24 07:53 Home Medications ?Medication ?Instructions ?Recorded ?Confirmed ?Last Taken ?Type polysaccharide iron complex 150 mg 150 mg PO DAILY 10/23/23 02/04/24 02/11/24 History iron capsule (Ferrex) ondansetron 4 mg disintegrating 4 mg PO Q12H PRN nausea and 02/12/24 Unknown History tablet vomiting pantoprazole 40 mg tablet,delayed 40 mg PO DAILY@0630 02/12/24 02/12/24 02/11/24 History release Exam Height,Weight and Vital Signs: Height 5 ft 5.5 in Weight 93.894 kg Pertinent Lab Results Pertinent Lab Results: Laboratory Tests 02/08/24 02/08/24 07:22 07:31 WBC 7.2 RBC 4.55 Hgb 11.5 L Hct 36.3 L MCV 79.8 L MCH 25.3 L MCHC 31.7 RDW 14.8 Plt Count 343 MPV 10.2 Immature Gran % (Auto) 0.1 Neut % (Auto) 54.3 Lymph % (Auto) 32.4 Ashe % (Auto) 7.8 Eos % (Auto) 4.6 H Baso % (Auto) 0.8 Lymph # (Auto) 2.3 Ashe # (Auto) 0.6 Eos # (Auto) 0.3 Baso # (Auto) 0.1 Abs Immat Gran (auto) 0.01 Absolute Neuts (auto) 3.9 Absolute Nucleated RBC 0.000 Nucleated RBC % (auto) 0.0 PT 13.7 H INR 1.1 APTT 33.9 Sodium 140 Potassium 3.8 Chloride 108 Carbon Dioxide 19 L Anion Gap 17 BUN 13 Creatinine 0.94 Estim Creat Clear Calc 101.8 Estimated GFR > 60 Random Glucose 87 Estimat Average Glucose 100 Hemoglobin A1c % 5.1 Insulin Level 9 Calcium 9.7 Total Bilirubin 0.3 AST 20 ALT 19 Alkaline Phosphatase 96 C-Reactive Protein 0.67 H Total Protein 7.7 Albumin 4.4 Triglycerides 58 Cholesterol 138 LDL Cholesterol, Calc 73 HDL Cholesterol 54 TSH 1.49 Blood Type B Positive Antibody Screen NEGATIVE Narrative Narrative: EKG 10/2023 Vent. Rate : 061 BPM Atrial Rate : 061 BPM P-R Int : 140 ms QRS Dur : 086 ms QT Int : 408 ms P-R-T Axes : 067 055 052 degrees QTc Int : 410 ms Normal sinus rhythm Normal ECG No previous ECGs available Assessment and Plan Assessment Anesthesia Assessment: Chart Reviewed Documented by User: Hetal Rapp MD 02/12/24 09:42 [facility] Past Medical History Medical History Anemia Depression GERD (gastroesophageal reflux disease) Family History Family history of problems with anesthesia: No Surgical History Surgical History No pertinent past surgical history History of Problems with Anesthesia: No Social History Social History Are you a primary career center director to a significant other at home: No Do you presently have visiting nurse or other home services: No Patient Tobacco Use Status: Former Tobacco user Quit Date: 08/2023 Tobacco use type: Cigarette Use of substances other than those prescribed or required for medical reasons: No Have you been hit, kicked, punched, or otherwise hurt by someone within the past year? If so, by whom?: No Are you DNR?: No Advance Directives: No Advance Directives Information Provided: Yes Advance Directives on File: No Recently lost weight without trying: No Eating poorly because of decreased appetite: No Nutrition Risks: No Nutritional Risk Patient : No FDLMP: 01/21/24 : No Poor oral hygiene: No (bonding upper front two teeth) Meds Allergies Allergy/AdvReac Type Severity Reaction Status Date / Time No Known Allergies Allergy Verified 02/12/24 07:53 Home Medications ?Medication ?Instructions ?Recorded ?Confirmed ?Last Taken ?Type polysaccharide iron complex 150 mg 150 mg PO DAILY 10/23/23 02/04/24 02/11/24 History iron capsule (Ferrex) ondansetron 4 mg disintegrating 4 mg PO Q12H PRN nausea and 02/12/24 Unknown History tablet vomiting pantoprazole 40 mg tablet,delayed 40 mg PO DAILY@0630 02/12/24 02/12/24 02/11/24 History release Exam Airway Mallampati Class: II TM Dist: >3cm Neck ROM: Full Assessment and Plan Assessment Anesthesia Assessment: Anesthesia Plan Discussed Final Anesthetic Review Family History of Problems with Anesthesia: No History of Problems with Anesthesia: No NPO: Yes ASA Class: III Final Preanesthetic Review: No Changes in Pt Med Stat, Meds/Allgs Chart Reviewed, Consent Obtained/Reviewed and Anes Risks/Benef Reviewed Patient Risk: Intermediate Procedure Risk: Intermediate Anesthetic Plan Anesthetic Plan: GA Disposition: Standard PACU
[2024-02-12] VITALS (9 sets, daily range): BP systolic 120–155; BP diastolic 56–80; PULSE 72–130; RESP 14–18; TEMP 36.4–37.1; O2SAT 95–100; BMI 36.5
[2024-02-12 08:08] LABS: UPreg QC Valid YES; Urine Pregnancy NEGATIVE (NEGATIVE)
[2024-02-12] MEDS: Lactated Ringers 1,000 ML 999 ML IV (08:18)
[2024-02-12] MEDS: Aprepitant 32 MG/4.4 ML VIAL IVPUSH (08:19)
[2024-02-12] MEDS: Lactated Ringers 1,000 ML 100 ML IVCONT ×2 (10:00→15:22)
--- NOTE | 2024-02-12 11:21 | P.BOP_ITS ---
Brief Operative Note Date of Service: 02/12/24 Pre-op diagnosis: Severe obesity with comorbidities (see below) Post-op diagnosis: same Procedure: INITIAL PATIENT BMI ON PRESENTATION AT OUR OFFICE: 36.1 kg/m2 LAST BMI BEFORE SURGERY: 34.8 kg/m2 COMORBIDITIES: GERD ?The patient presented to the Weight Management Program with significant obesity that was negatively impacting the patient's comorbidities as listed above.? The program is a phased program with a special focus on preoperative medical weight management to promote substantial weight loss and prepare the patients for the second phase of the program: bariatric surgery. The patient participated in an intensive weekly lifestyle ?intervention and exercise program during which the patient ?has lost between the initial office visit and the last preoperative visit 11.2lbs, or 5.09% of initial actual body weight. It was deemed appropriate for the patient to now have bariatric surgery. In light of the current Covid-19 pandemic and the well documented strong association of obesity and increased risk of worse outcomes if infected with Covid-19 (REFERENCES: https://pubmed.ncbi.nlm.nih.gov/57139151/ ,? https://pubmed.ncbi.nlm.nih.gov/34319630/ ), any delay in undergoing bariatric surgery may lead to the patient's worsening health condition and increased?risk of more severe Covid-19 disease if infected. In addition a recent?study from [facility] published in [facility] on 09/26/2021 ([email or web address]) found that, among patients with obesity, substantial weight loss achieved with surgery was associated with improved outcomes of COVID-19 infection. The findings suggest that obesity can be a modifiable risk factor for the severity of COVID-19 infection. In addition, the patient met the BMI-criteria for bariatric surgery based on the BMI on initial presentation. The patient should not be penalized for achieving such weight loss because ?it is not sustainable long-term without surgical intervention and it was achieved in preparation for bariatric surgery ?under my direction and based on my published research ([email or web address]).[email or web address] and? https://www.gloria.org/article/Q7677-4774(08)90870-X/pdf ) ?that a 10% preoperative weight loss improves long-term weight loss after surgery and reduces perioperative complications.? Insurance carriers such as [facility] have endorsed my recommendations ?and have included in their policies criteria to include a 10% preoperative weight loss requirement. PROCEDURE: Esophago-gastroscopy, laparoscopic sleeve gastrectomy and laparoscopic gastropexy INDICATIONS: This is a 28 year-old female who was electively scheduled for laparoscopic, possibly open sleeve gastrectomy. The risks and complications of the procedure were discussed with the patient in advance, particularly the possibility of ; pulmonary embolism; staple line leak; bleeding; GERD; cardiac, pulmonary, or renal complications; as well as long-term problems such as insufficient weight loss, vitamin deficiency, strictures, or ulcers. The patient understood all the risks, and was in agreement to proceed with surgery. DESCRIPTION OF PROCEDURE: After informed consent was obtained from the patient, the patient was given preoperative antibiotics, and was transferred to the operating room. After successful induction of general anesthesia, pneumatic compression devices were placed on both lower extremities. An upper endoscopy was performed next. The oropharynx and esophagus appeared to be within normal limits. There was no diaphragmatic hernia present, consistent with the findings of the preoperative upper GI. The stomach was entered. Then after all fluid and air were suctioned and the stomach was fully decompressed, the scope was withdrawn and secured in the mid esophagus. The patient was then prepped and draped in the usual sterile manner, and abdominal access was established at the right upper quadrant with the Radha technique. A 12 mm blunt port was inserted, and the abdomen was insufflated with CO2 to a pressure of 15 mmHg. Under direct visualization, additional ports were placed, specifically two 5 mm Versi-step ports to the left upper quadrant, and a 5 mm Versi-Step port to the right upper quadrant. 1% lidocaine plain was used to infiltrate all port sites as well as all fascia defects. Using the EndoClose suture passer device, I placed a #1 Polysorb tie across the falciform ligament in order to retract it up against the abdominal wall and prevent injury of the ligament with our instruments during the procedure.. Following that, the patient was placed in a steep reverse Trendelenburg position. An additional 5 mm port was placed to the right flank for the Mediflex retractor that was used to retract the left lobe of the liver. The gastro-esophageal fat pad was opened with the ultrasonic device (Thunderbeat, Olympus) and the anterior esophagus and hiatus were exposed. The angle of His was opened with the ultrasonic device the fundus of the stomach from any diaphragmatic and splenic attachments. I then opened the gastrocolic ligament between the transverse colon and the greater curvature of the stomach with the ultrasonic device to enter the lesser sac and facilitate the ligation of the short gastric vessels. I started at a mid-point along the greater curvature and using the Thunderbeat, all short gastric vessels were divided all the way to the angle of His until the left danielle was completely dissected at its entirety. I then divided the gastro-colic ligament distally to a distance of about 3-4 cm proximal to the pylorus. The stomach was then divided transversely with two Endo KOBE-45 purple and three KOBE-60 articulating purple loads using the StoreAge stapler and loads. Every effort was made that the gastric sleeve had a tubular shape and an even caliber throughout. Once the sleeve resection was completed, the staple line of the gastric sleeve was reinforced with Hemoclips. The resected stomach was retrieved without difficulty from the Radha port. A gastropexy was then performed in order to prevent postoperative GERD and partial gastric volvulus. Several interrupted 2.0 Surgidac sutures were placed between the sleeve's staple line and the previously divided greater omentum and gastro-colic ligament using the Endo-Stitch device. ?An upper endoscopy was performed. There was no narrowing at the GE junction. The scope was easily advanced all the way to the pylorus which was clearly visualized. There was no narrowing anywhere and the sleeve's caliber was even throughout. The sleeve's staple line was inspected and there was no evidence of ischemia, bleeding or dehiscence. At that point the gastroscope was withdrawn from the patient?s mouth while we were decompressing the bowel and the stomach from any remaining air. I looked into the lesser sac to see how the sleeve was situating and it was si tuating well. There was no bleeding from the staple line, spleen, or short gastric vessels. The Mediflex retractor was removed, and the undersurface of the liver was inspected and there was no bleeding. The patient was placed in supine position. I closed the fascial defect of the 12 mm port site with a figure of eight #1 Polysorb suture. Then 100 cc 0.25 % Marcaine plain with 10 mg of Dexamethasone were used to infiltrate the fascial closure as well as all skin incisions. A total of 6ml Zynrelef was applied in the Radha wound. At this point, the abdomen was deflated, all ports were removed under direct vision, and no bleeding was noted from any of the port sites. The skin incisions were irrigated with saline and were closed with 4-0 absorbable monofilament sutures. Steri- Strips and OpSites were used to cover all incisions. The patient was extubated and was transferred in stable condition to the recovery room for further care. I was present and performed all perez parts of the procedure. Ms. Smithjose daniel was the welder assistant. There were no residents to assist with this case. Sam Roque MD, PhD, FACS Surgeon: Roberth Roque MD Anesthesia: GETA, local and other (TAP block and 6ml Zynrelef) Was an Safety Investigator/Cause Analyst used for this Procedure?: No Safety Investigator/Cause Analyst: Estefani Pride Estimated blood loss (mL): 10 IV fluids (mL): 2,000 Urine output (mL): 0 (No Villarreal to record output) Pathology: other (Stomach) Condition: stable Disposition: PACU
--- NOTE | 2024-02-12 11:26 | P.PNGS_ITS ---
Subjective Subjective Date of Service: 02/13/24 Interval history: Feels well. Mild incisional pain. She is tolerating phase 1 bariatric diet Physical Exam 2 Vital Signs: Vital Signs: Last Vital Signs Temp 98.7 F 02/12/24 08:09 Pulse 72 02/12/24 08:09 Resp 15 02/12/24 08:09 BP 122/63 02/12/24 08:09 Pulse Ox 98 02/12/24 08:09 O2 Del Method Room Air 02/12/24 08:09 BMI result Body Mass Index 33.9 GI: Inspection: Yes normal to inspection, Yes incision (clean, dry and intact) and Yes obesity Palpation (GI): Soft to palpation Extrem: Right lower extremity: normal to inspection (no calf tenderness) L eft lower extremity: normal to inspection (no calf tenderness) Objective Data Active Medications Hydromorphone HCl (Hydromorphone Hcl 0.5 Mg/0.5 Ml Syringe) 0.5 mg IVPUSH Q5M PRN; Protocol PRN Reason: Pain, Severe (Pain Scale 7-10) Stop: 02/12/24 15:42 Lactated Ringer's (Lr) 1,000 mls @ 100 mls/hr IVCONT .Q10H ASHTYN Last Admin: 02/12/24 10:00 Dose: 100 mls/hr Documented By: SHALOM Ondansetron HCl (Ondansetron Hcl 4 Mg/2 Ml Vial) 4 mg IVPUSH ONCE PRN PRN Reason: Nausea and Vomiting Stop: 02/12/24 15:42 Labs 02/13/24 05:26 02/13/24 05:26 Labs: Laboratory Results - last 24 hr 02/12/24 07:50 Urine Test NEGATIVE Procedures Date of Service Date of Service: 02/13/24 Progress Note: A&P Assessment and plan (1) Obesity: Status: Acute Assessment and Plan: s/p laparoscopic sleeve gastrectomy and gastropexy Doing well Will check am labs and if OK the patient will be discharged home (2) GERD (gastroesophageal reflux disease): Status: Acute (3) Depression, unspecified: Status: Acute (4) Anemia: Status: Acute (5) BMI 34.0-34.9,adult: Status: Acute (6) S/P laparoscopic sleeve gastrectomy: Status: Acute Time Spent With Patient Time: Total time managing care of this patient today ____ minutes. Quality Stroke Does the patient have a stroke diagnosis?: No VTE Prior VTE?: No VTE Risk Level:: Surgical - moderate VTE Device Contraindication: N/A - Device Ordered VTE Drug Contraindication: Treatment Not Indicated
--- NOTE | 2024-02-12 11:35 | P.DS_ITS ---
DS: Providers Provider Date of Service: 02/13/24 Date of admission: 02/12/24 07:43 Primary care physician: Unknown Physician DS: Diagnosis Discharge Diagnosis (1) Obesity: Status: Acute (2) GERD (gastroesophageal reflux disease): Status: Acute (3) Depression, unspecified: Status: Acute (4) Anemia: Status: Acute DS: Summary Hospital Course Hospital Course: ADMITTING DIAGNOSIS: obesity, GERD ? DISCHARGE DIAGNOSIS: same, s/p laparoscopic sleeve gastrectomy and gastropexy ? PAST SURGICAL HISTORY:?none ? PROCEDURE: upper endoscopy, laparoscopic sleeve gastrectomy and gastropexy ? DISCHARGE SUMMARY: ? History of Present Illness: ? The patient is a? 28? year-old woman with a BMI of? ?33.9 ? kg/m2 and associated co-morbidities as described above. The patient had extensive work-up, lost? ?13.2 ? lbs preoperatively and was electively scheduled for laparoscopic, possible open sleeve gastrectomy and gastropexy. Risks and complications of the surgery were discussed with the patient in advance, particularly the possibility of , pulmonary embolism, anastomotic leak, bleeding, bowel injury, GERD, cardiac, renal or pulmonary complications. The patient understood all the risks and was in agreement with the surgical plan. ? Hospital Course: ? The patient underwent an uneventful laparoscopic sleeve gastrectomy with gastropexy on the day of admission. Postoperatively, the patient was transferred to the surgical floor. The patient received IV Acetaminophen and IV dilaudid for pain control. Patient was started on bariatric phase 1 diet POD #0. On postoperative day one, the patient was feeling well without nausea, vomiting, fevers, or tachycardia. The patient had some mild incisional pain and the ab domen was soft.? ? On the morning of postoperative day one, the patient was continued on 1 ounce of water or ice every half hour. During the day, the patient did fairly well, having some incisional pain, but able to ambulate adequately and to tolerate liquids well. ? Since the patient is doing well, we decided that the patient was ready to be discharged. The patient was given instructions to follow-up with me next week and to call my office for any fever over 101, persistent abdominal pain, nausea, vomiting, GERD, symptoms of DVT such as calf tenderness, or leg swelling, or pulmonary embolism such as chest pain or shortness of breath.? The patient was also instructed to drink 40-60 ounces of liquids per day using the 1-ounce cups. The patient had been given prescriptions for Tylenol for pain, Zofran prn for nausea, and pantoprazole and carafate previously. The patient was encouraged to ambulate and use the incentive spirometer. The patient was allowed to shower, but no baths, and encouraged to stay active at home. All of these instructions were given to the patient personally. All questions were answered and the patient understood all instructions, the instructions were also given to the patient in print. Time Attestation Discharge Coordination Time (in mins): 30 Quality: Safe Use of Opioids Does Pt have an Active Cancer Diagnosis on the Problem List?: No Quality: Stroke Does the patient have a stroke diagnosis?: No Physical Exam Vital Signs: Vital Signs: Last Vital Signs Temp 98.7 F 02/12/24 08:09 Pulse 72 02/12/24 08:09 Resp 15 02/12/24 08:09 BP 122/63 02/12/24 08:09 Pulse Ox 98 02/12/24 08:09 O2 Del Method Room Air 02/12/24 08:09 BMI result Body Mass Index 33.9 DS: Data Data Completed and Pending Labs on day of discharge: Laboratory Results - last 24 hr 02/12/24 07:50 Urine Test NEGATIVE Discharge Plan Discharge Patient Disposition: Home, Self-Care Referrals: Physician,Unknown J [Primary Care Provider] - 1 Week Discharge Medications: Continued pantoprazole 40 mg tablet,delayed release (DR/EC) 40 mg PO DAILY@0630 ondansetron 4 mg tablet,disintegrating 4 mg PO Q12H PRN (Reason: nausea and vomiting) Rx Instructions: Only take one every 12 hours as needed if you have nausea sucralfate 100 mg/mL suspension 10 ml PO BID Qty: 600 2RF Discontinued vitamin A palmitate 3,000 mcg (10,000 unit) capsule 10,000 unit PO DAILY Qty: 90 0RF mecobalamin (vitamin B12) 1,000 mcg tablet,disintegrating 1,000 mcg sublingual DAILY Qty: 90 0RF Rx Instructions: place tablet under tongue and allow to dissolve for at least30 secs before swallowing cholecalciferol (vitamin D3) 125 mcg (5,000 unit) capsule 125 mcg PO DAILY Qty: 90 2RF Vitron-C 65 mg iron- 125 mg tablet,delayed release (DR/EC) 1 tab PO DAILY Qty: 90 0RF Rx Instructions: swallow whole; do not chew/break/dissolve/open polysaccharide iron complex [Ferrex 150] 150 mg iron capsule 150 mg PO DAILY Discharge Orders: Discharge Order (Routine); Ordered 02/13/24 Ordered By: Roberth Roque Activity on Discharge: No heavy lifting Stand Alone Forms: Patient Portal Discharge page Print Language: Serbian Discharge Date/Time: 02/13/24 08:45
[2024-02-12] MEDS: droPERidol 5 MG/2 ML VIAL 0.625 MG IVPUSH (14:19)
[2024-02-12 14:52] LABS: Hematocrit 34.9 % (37.0-47.0)
[2024-02-12 15:11] LABS: Anion Gap 19 (12-20); Blood Urea Nitrogen 13 mg/dL (9-16); Calcium 9.1 mg/dL (8.4-10.2); Carbon Dioxide 15 mmol/L (22-29); Chloride 105 mmol/L (96-108); Creatinine Clr Calc Pharmacy 96.6; Estimated Glomerular Filt Rate > 60; Glucose Random 144 mg/dL (60-115); Potassium 3.4 mmol/L (3.3-5.1); Sodium 136 mmol/L (135-145)
--- NOTE | 2024-02-12 15:48 | PHA.MEDREC ---
Pharmacy Consult ? Medication Reconciliation Rn has completed the medication reconciliation, pharmacy reviewed.
[2024-02-12] MEDS: ceFAZolin Sodium/Dextrose,Iso 2 GM/50 ML PIGGYBACK IV (17:38)
[2024-02-12] MEDS: Acetaminophen 1,000 MG/100 ML PIGGYBACK 16.7 MG IV ×2 (18:17→22:57)
[2024-02-12] MEDS: Famotidine/PF 20 MG/2 ML VIAL IVPUSH (20:26)
[2024-02-12] MEDS: 0.9 % Sodium Chloride Flush 3 ML SYRINGE IVFLUSH (20:28)
[2024-02-12] MEDS: HYDROmorphone HCl 0.5 MG/0.5 ML SYRINGE 0.25 MG IVPUSH (22:54)
[2024-02-13] MEDS: Lactated Ringers 1,000 ML 100 ML IVCONT (02:24)
[2024-02-13 03:48] VITALS: BP 115/77; PULSE 93; RESP 16; TEMP 36.8; O2SAT 98
[2024-02-13 03:51] VITALS: BP 126/59; PULSE 77; RESP 16; TEMP 36; O2SAT 99
[2024-02-13] MEDS: Acetaminophen 1,000 MG/100 ML PIGGYBACK 16.7 MG IV (04:56)
[2024-02-13 06:16] LABS: MANUAL DIFF FLAG NO
[2024-02-13 06:28] LABS: Basophils Percent Auto 0.1 % (0-2); Hematocrit 32.9 % (37.0-47.0); Hemoglobin 10.5 g/dl (12.0-16.0); Imm Gran Abs Auto 0.07 X10*3/uL (0.00-0.03); Imm Gran Pct Auto 0.7 % (0.0-0.4); Lymphocytes Absolute Auto 0.7 X10*3/uL (1.2-4.9); Lymphocytes Percent Auto 6.7 % (20-40); Mean Corpuscular HGB Conc 31.9 g/dl (31.0-35.0); Mean Corpuscular Hemoglobin 25.1 pg (27.0-33.0); Mean Corpuscular Volume 78.7 fL (80.0-98.0); Monocytes Absolute Auto 0.4 X10*3/uL (0.1-1.2); Monocytes Percent Auto 3.7 % (2-11); Neutrophils Absolute Auto 9.5 x10*3/uL (2.0-8.3); Neutrophils Percent Auto 88.8 % (45-73); Platelet Count 298 X10*3/uL (160-400); Red Blood Count 4.18 X10*6/uL (4.20-5.50); Red Cell Distribution Width 14.9 % (11.0-16.0); White Blood Count 10.7 X10*3/uL (4.8-10.8)
[2024-02-13 06:41] LABS: Anion Gap 15 (12-20); Blood Urea Nitrogen 9 mg/dL (9-16); Calcium 9.7 mg/dL (8.4-10.2); Carbon Dioxide 19 mmol/L (22-29); Chloride 107 mmol/L (96-108); Creatinine Clr Calc Pharmacy 109.3; Estimated Glomerular Filt Rate > 60; Glucose Random 113 mg/dL (60-115); Potassium 4.3 mmol/L (3.3-5.1); Sodium 137 mmol/L (135-145)
[2024-02-13 07:19] VITALS: BP 120/62; PULSE 73; RESP 14; TEMP 36.9; O2SAT 100
[2024-02-13] MEDS: Famotidine/PF 20 MG/2 ML VIAL IVPUSH (07:51)
--- NOTE | 2024-02-13 08:49 | MHC.CM.PN ---
pt dcd home self care
--- NOTE | 2024-02-13 09:33 | HO.POSTANES ---
Post Anesthesia Evaluation Post Anesthesia Evaluation Date of Service: 02/13/24 Vital Signs: Vital Signs Temp Pulse Resp BP Pulse Ox O2 Del Method O2 Flow Rate 02/13/24 07:19 98.4 F 73 14 120/62 100 Room Air 02/13/24 07:05 Room Air 02/13/24 03:51 96.8 F 77 16 126/59 L 99 Room Air 02/13/24 03:48 98.3 F 93 16 115/77 98 Nasal Cannula 2 02/12/24 23:19 97.6 F 74 16 122/56 L 96 Room Air Anesthesia: General Endotracheal-GETA Mental Status: Awake Pain Control: Satisfactory Nausea/Vomiting: None Hydration: Adequate Anesthesia-Related Issues: No Anes. Related Issues
== END 2024-02-13 08:45 | disposition home or self-care (01) ==
LOC: HO.SSS 07:29 → HO.SSSA 11:33 → HO.S3 14:56
PROVIDERS: Nurse Practitioner; Physician Assistant Surgical; Visit Provider Surgery
PROC: (CPT 43845; principal; 2024-02-12 10:20)
DX: E66.09 Other obesity due to excess calories (principal); Z68.36 Body mass index [BMI] 36.0-36.9, adult; K21.9 Gastro-esophageal reflux disease without esophagitis; D64.9 Anemia, unspecified; E50.9 Vitamin A deficiency, unspecified; F32.A Depression, unspecified; Z79.899 Other long term (current) drug therapy; Z87.891 Personal history of nicotine dependence
CPT/HCPCS: 43775; 43659; 36415; 80048; 80053; 80061; 81025; 83036; 83525; 84443; 85014; 85018; 85025; 85610; 85730; 86140; 86850; 86900; 86901; 88304; 88305; 88307; 88342; A4649; C9088; C9145; J0131; J0690; J1100; J1170; J1790; J2250; J2405; J2704; J2795; J3010; J7120

== ENCOUNTER → 2024-02-12 07:43 | Outpatient (BNV) | payer OTHER, SELFPAY | PROVIDERS: Admitting Provider Surgery; Visit Provider Surgery | DX: E66.09 Other obesity due to excess calories (principal); Z68.36 Body mass index [BMI] 36.0-36.9, adult | CPT/HCPCS: 43659; 43775; 99024 ==

== ENCOUNTER 2024-02-22 13:41 | Outpatient (AMB) | payer OTHER, SELFPAY ==
--- NOTE | 2024-02-22 14:14 | A.OFFVIS_ITS ---
VS Expanded 02/22/24 14:23 BP 116/56 L Blood Pressure Location Rt brachial Blood Pressure Position Sitting Pulse 80 Pulse Source Pulse Oximeter Temp 96.6 F L Temperature Source Tympanic Pulse Oximetry 100 Oxygen Delivery Method Room Air Height 5 ft 5.5 in Weight 201 lb 6.4 oz BMI 33.0 Body Fat % 43.8 Body Fat Mass 88.2 Fat Free Mass 113.0 Visceral Fat Rating 8.0 Body Water % 40.4 Body Water Mass 81.4 Muscle Mass/Score 107.4 Basal Metabolic Rate/Score 1,624 Intake Visit Reasons: (OV) PO LSG 02/12/24 Allergies No Known Allergies Allergy (Verified 02/22/24 14:32) HPI Comments Details: Patient is a pleasant 28-year-old female who returns to the office today in follow-up. She is status post sleeve gastrectomy on 02/12/2024. She reports tolerating celebrate 4 in 1 shakes, 2 scoops each however she misread the instructions and had been doing 3 celebrate 4 in 1 shakes instead of 2 celebrate 4 in 1 shakes and 1 celebrate rebuild. This was corrected at today's appointment. She is additionally tolerating 20 oz of fluids. She moved her bowels without difficulty. [facility] Medical History (Updated 02/16/24 @ 00:03 by Alesha Ortega) BMI 34.0-34.9,adult Anemia Depression GERD (gastroesophageal reflux disease) Surgical History (Updated 02/22/24 @ 14:33 by Delmy Garber [facility]) Hx of laparoscopic partial gastrectomy Social History Household Members: Significant Other Housing: Apartment Are you a primary interior plant caretaker to a significant other at home: No Do you presently have visiting nurse or other home services: No Patient Tobacco Use Status: Former Tobacco user Quit Date: 08/2023 Tobacco use type: Cigarette Second Hand Smoke Exposure: No Physical Exam Vital Signs: Last Vital Signs Temp 96.6 F L 02/22/24 14:23 Pulse 80 02/22/24 14:23 BP 116/56 L 02/22/24 14:23 Pulse Ox 100 02/22/24 14:23 Oxygen Delivery Method Room Air 02/22/24 14:23 BMI result Body Mass Index 33.0 GI Inspection: Yes incision (Clean, dry, intact.) Assessment & Plan Assessment & Plan (1) S/P laparoscopic sleeve gastrectomy: Code(s): Z98.84 - Bariatric surgery status Category: Surgical Plan: POD 10 s/p LSG on 02/12/[address] Roque Weight loss prior to surgery was 13.9 pounds or 6.3 % TBWL. Original weight on 10/23/2023 was 220.2 pounds and op weight was 206.3 pounds. Be sure to text Dr Roque exactly 1 week after surgery your weight from your home scale so he can adjust your meal plan. Continue meal plan until f/u w Estefani in 2 weeks May shower, no submersion in bath for another week Continue abdominal binder with activity and exercise for the next 2 weeks. Exercise prior to surgery was treadmill and stationary bike and may resume No abdominal exercises for 6 weeks post operatively Will be emailed link to post op video for review Reminded of the pace of drinking, 2 mL per minute, 1 oz/15 min. She was reminded to read the instructions very carefully by Dr. Roque regarding her meal plan. In going over it, it was changed 3 days ago. She should be doing to celebrate 4 in 1 shakes with 2 scoops each and 1 celebrate rebuild shake with 1 scoop.
[2024-02-22 14:23] VITALS: BP 116/56; PULSE 80; TEMP 35.9; O2SAT 100; BMI 33.0
== END 2024-02-22 14:53 | disposition home or self-care (01) ==
PROVIDERS: Visit Provider Physician Assistant Surgical
DX: Z98.84 Bariatric surgery status (principal)
CPT/HCPCS: 99024

== ENCOUNTER → 2024-02-22 13:41 | Outpatient (BNVA) | payer OTHER, SELFPAY | PROVIDERS: Visit Provider Physician Assistant Surgical ==

== ENCOUNTER 2024-03-12 14:00 | Outpatient (AMB) | payer OTHER, SELFPAY ==
--- NOTE | 2024-03-12 14:03 | A.OFFVIS_ITS ---
VS Expanded 03/12/24 14:09 Height 5 ft 5.5 in Weight 197 lb BMI 32.3 Intake Visit Reasons: (TV) PO LSG 02/12/24 Allergies No Known Allergies Allergy (Verified 02/22/24 14:32) Medication List - Last Reconciled 03/12/24 by WANDA Kevin cholecalciferol (vitamin D3) 125 mcg PO DAILY docusate sodium 100 mg PO BID iron,carbonyl-vitamin C 65 mg iron- 125 mg (Vitron-C) 1 tab PO DAILY pantoprazole 40 mg PO DAILY@0630 sucralfate 10 mL PO BID HPI Comments Details: This?is a?28?yo female who is s/p LSG 02/12/2024. Presents for 4 week post op visit. Weight at last visit on 02/22/2024 was 201.4 pounds with a BMI of 33, weight today is 197 pounds, representing a 4.6 pound weight loss with a BMI today of 32.3.? No complaints of nausea, emesis, abdominal pain or reflux. Constipation- not taking anything. Present meal plan includes: 8-10am Celebrate 4:1 2 scoops 11am-1pm Celebrate 4:1 2pm-4pm Rebuild shake 5-8pm [employer] Exercise routine includes: walking, biking- 300 emeka/day [facility] Medical History (Updated 02/16/24 @ 00:03 by Alesha Ortega) BMI 34.0-34.9,adult Anemia Depression GERD (gastroesophageal reflux disease) Surgical History (Updated 02/22/24 @ 14:33 by Delmy Garber [facility]) Hx of laparoscopic partial gastrectomy Social History Household Members: Significant Other Housing: Apartment Are you a primary care center manager to a significant other at home: No Do you presently have visiting nurse or other home services: No Patient Tobacco Use Status: Former Tobacco user Tobacco use type: Cigarette Second Hand Smoke Exposure: No Telehealth Telehealth Telehealth Platform: Telephone Location of provider rendering services: practice address Location of patient: address on file Patient Identification confirmed using: Name, : Yes Telehealth method: voice only Patient verbally consented to treatment: Yes Patient verbally consented to billing insurance company: Yes Patient informed of any privacy concerns related to visit: Yes Minutes spent on Phone/Video with Pt.: 15 Assessment & Plan Assessment & Plan (1) S/P laparoscopic sleeve gastrectomy: Code(s): Z98.84 - Bariatric surgery status Category: Surgical (2) Obesity: Code(s): E66.9 - Obesity, unspecified Category: Medical Qualifiers: Obesity type: due to excess calories Obesity classification: adult class 2 (BMI 35 - 39.9) Serious obesity comorbidity presence: without serious comorbidity Body mass index: BMI 36.0-36.9 Qualified Code(s): E66.09 - Other obesity due to excess calories; Z68.36 - Body mass index [BMI] 36.0-36.9, adult Plan Continue current meal plan per Dr Wan and continue to send weekly weights. No heavy lifting until 6 weeks postop. Continue PPI, carafate. Resume iron- refilled, take in evening. RTC 1 month. Patient is obese and is not considered stable at this time. I spent a total of 30 minutes reviewing/updating records, examining the patient and counseling the patient on weight management as detailed above. Medications: New docusate sodium 100 mg PO BID 30 caps 1RF Refilled iron,carbonyl-vitamin C 65 mg iron- 125 mg (Vitron-C) swallow whole; do not chew/break/dissolve/open 1 tab PO DAILY 90 tabs 0RF D64.9 - Anemia, unspecified
[2024-03-12 14:09] VITALS: BMI 32.3
== END 2024-03-12 15:55 | disposition home or self-care (01) ==
LOC: HO.HBS 15:54
PROVIDERS: Visit Provider Physician Assistant Surgical
DX: E66.09 Other obesity due to excess calories (principal); Z68.32 Body mass index [BMI] 32.0-32.9, adult; Z90.3 Acquired absence of stomach [part of]; Z98.84 Bariatric surgery status
CPT/HCPCS: 99024

== ENCOUNTER → 2024-03-12 14:00 | Outpatient (BNVA) | payer OTHER, SELFPAY | PROVIDERS: Visit Provider Physician Assistant Surgical | DX: D64.9 Anemia, unspecified (principal); Z98.84 Bariatric surgery status; E66.09 Other obesity due to excess calories; Z68.36 Body mass index [BMI] 36.0-36.9, adult ==

== ENCOUNTER 2024-03-19 11:41 | Outpatient (AMB) | payer OTHER, SELFPAY ==
--- NOTE | 2024-03-19 11:44 | A.OFFVIS_ITS ---
VS Expanded 03/19/24 11:49 BP 129/73 Blood Pressure Location Rt brachial Blood Pressure Position Sitting Pulse 92 Pulse Source Pulse Oximeter Temp 97.8 F Temperature Source Temporal Artery Scan Pulse Oximetry 96 Oxygen Delivery Method Room Air Height 5 ft 5.5 in Weight 192 lb 3.2 oz BMI 31.5 Body Fat % 39.8 Body Fat Mass 76.6 Fat Free Mass 115.6 Visceral Fat Rating 7.0 Body Water % 43.3 Body Water Mass 83.2 Muscle Mass/Score 109.6 Basal Metabolic Rate/Score 1,634 Intake Visit Reasons: (OV) PO LSG 02/12/24 *See Comments* Allergies No Known Allergies Allergy (Verified 03/19/24 11:45) Medication List - Last Reconciled 03/19/24 by WANDA Kevin docusate sodium 100 mg PO BID iron,carbonyl-vitamin C 65 mg iron- 125 mg (Vitron-C) 1 tab PO DAILY pantoprazole 40 mg PO DAILY@0630 sucralfate 10 mL PO BID HPI Comments Details: This?is a?28?yo female who is s/p LSG on?02/12/2024. Weight loss of 4.8lbs since 1 week ago. Pt called office yesterday to report new onset fever 101, headache, dizziness, abdominal pain, vomiting. Fever resolved, pt instructed to get protein jones which she tolerated. Today, pt reports no more fever. Tolerating Celebrate protein jones, but feels heavy. Gets a little lightheaded/dizzy if she stands. VS noted, no tachycardia, no hypotension. Has not been able to take much fluids. Intermittent nausea. No additional diarrhea. Prior to yesterday, Present meal plan includes: 8-10am Celebrate 4:1 2 scoops 11am-1pm Celebrate 4:1 2pm-4pm Rebuild [employer] 5-8pm [employer]) Exercise routine includes: walking, biking- 300 emeka/day [facility] Medical History (Updated 03/19/24 @ 12:29 by WANDA Kevin) BMI 34.0-34.9,adult Anemia Depression GERD (gastroesophageal reflux disease) Surgical History Hx of laparoscopic partial gastrectomy Social History Household Members: Significant Other Housing: Apartment Are you a primary childcare center administrator to a significant other at home: No Do you presently have visiting nurse or other home services: No Patient Tobacco Use Status: Former Tobacco user Tobacco use type: Cigarette Second Hand Smoke Exposure: No Physical Exam Const General: cooperative, comfortable and no acute distress Orientation/consciousness: patient oriented x3 GI Other: soft, nondistended, incisions healing well without erythema or drainage, no hernia, no masses. Mild tenderness of midabdomen without rebound, some voluntary guarding of palpation around umbilicus, no peritonitis Neuro General: patient oriented x3 Assessment & Plan Assessment & Plan (1) S/P laparoscopic sleeve gastrectomy: Code(s): Z98.84 - Bariatric surgery status Category: Surgical (2) Obesity: Code(s): E66.9 - Obesity, unspecified Category: Medical Qualifiers: Obesity type: due to excess calories Obesity classification: adult class 2 (BMI 35 - 39.9) Serious obesity comorbidity presence: without serious comorbidity Body mass index: BMI 36.0-36.9 Qualified Code(s): E66.09 - Other obesity due to excess calories; Z68.36 - Body mass index [BMI] 36.0-36.9, adult (3) Dizziness: Code(s): R42 - Dizziness and giddiness Category: Medical (4) Dehydration: Code(s): E86.0 - Dehydration Category: Medical Plan Pt with HR and BP WNL. I do not think there is currently an acute problem with her stomach or abdomen. She is slowly feeling somewhat better but PO fluid intake is still low. Occasional nausea limiting her intake, Adryfran ordered. We discussed focused on sipping slowly with goal of 1oz q15min. Can incorporate water if she feels too full for protein water during some 15min intervals. Focus right now on staying hydrated. Labs ordered to check for electrolyte deficiencies after GI losses. If pt has return of fever, worsening abdominal pain, or increased vomiting we discussed going to ER. Provided a work note to excuse her from leaving work early at direction of our office, and to remain out of work for the rest of the week to focus on recovery and hydration. She will text Andrew mackey and have telehealth visit with me in 5 days. I spent a total of 30 minutes reviewing/updating records, examining the patient and counseling the patient on weight management as detailed above. Orders: Orders Comprehensive Met. Panel Today R42 - Dizziness and giddiness, Z98.84 - Bariatric surgery status Complete Blood Count Auto Diff Today R42 - Dizziness and giddiness, Z98.84 - Bariatric surgery status Medications: New ondansetron 4 mg PO Q8H PRN 20 tabs 1RF nausea and vomiting
[2024-03-19 11:49] VITALS: BP 129/73; PULSE 92; TEMP 36.6; O2SAT 96; BMI 31.5
== END 2024-03-19 12:34 | disposition home or self-care (01) ==
PROVIDERS: Visit Provider Physician Assistant Surgical
DX: E66.09 Other obesity due to excess calories (principal); Z68.31 Body mass index [BMI] 31.0-31.9, adult; Z98.84 Bariatric surgery status; R42 Dizziness and giddiness; E86.0 Dehydration
CPT/HCPCS: 99024

== ENCOUNTER 2024-03-19 11:41 | Outpatient (REF) | payer OTHER, SELFPAY ==
[2024-03-19 12:39] LABS: MANUAL DIFF FLAG NO
[2024-03-19 12:48] LABS: Basophils Percent Auto 0.6 % (0-2); Eosinophils Absolute Auto 0.3 X10*3/uL (0.0-0.4); Eosinophils Percent Auto 3.6 % (0-4); Hematocrit 36.7 % (37.0-47.0); Imm Gran Abs Auto 0.01 X10*3/uL (0.00-0.03); Imm Gran Pct Auto 0.1 % (0.0-0.4); Lymphocytes Absolute Auto 2.3 X10*3/uL (1.2-4.9); Lymphocytes Percent Auto 33.8 % (20-40); Mean Corpuscular HGB Conc 32.7 g/dl (31.0-35.0); Mean Corpuscular Hemoglobin 25.3 pg (27.0-33.0); Mean Corpuscular Volume 77.4 fL (80.0-98.0); Mean Platelet Volume 11.1 fL (9.4-12.3); Monocytes Absolute Auto 0.6 X10*3/uL (0.1-1.2); Monocytes Percent Auto 9.3 % (2-11); Neutrophils Absolute Auto 3.6 x10*3/uL (2.0-8.3); Neutrophils Percent Auto 52.6 % (45-73); Platelet Count 286 X10*3/uL (160-400); Red Blood Count 4.74 X10*6/uL (4.20-5.50); Red Cell Distribution Width 16.3 % (11.0-16.0); White Blood Count 6.9 X10*3/uL (4.8-10.8)
[2024-03-19 13:59] LABS: Alanine Aminotransferase 24 U/L (0-31); Alkaline Phosphatase 84 U/L (39-117); Anion Gap 13 (12-20); Aspartate Amino Transferase 23 U/L (5-31); Bilirubin Total 0.6 mg/dL (0.0-1.0); Blood Urea Nitrogen 13 mg/dL (9-16); Calcium 9.8 mg/dL (8.4-10.2); Carbon Dioxide 20 mmol/L (22-29); Chloride 110 mmol/L (96-108); Estimated Glomerular Filt Rate > 60; Glucose Random 92 mg/dL (60-115); Potassium 4.2 mmol/L (3.3-5.1); Sodium 139 mmol/L (135-145); Total Protein 7.4 g/dL (6.5-8.0)
== END 2024-03-19 11:42 | disposition home or self-care (01) ==
LOC: HO.LAB 11:41
PROVIDERS: Visit Provider Physician Assistant Surgical
DX: R42 Dizziness and giddiness (principal); Z98.84 Bariatric surgery status
CPT/HCPCS: 36415; 80053; 85025

== ENCOUNTER 2024-03-24 15:15 | Outpatient (AMB) | payer OTHER, SELFPAY ==
--- NOTE | 2024-03-24 14:59 | MHC.OFFVISWM ---
Intake Visit Reasons: (TV) PO LSG 02/12/24 *See Comments* Allergies No Known Allergies Allergy (Verified 03/19/24 11:45) HPI Comments Details: Pt is s/p LSG 02/12/2024. Follow up after difficulty with PO intake. [facility] Medical History (Updated 03/20/24 @ 00:02 by Background Dajacki) BMI 34.0-34.9,adult Anemia Depression GERD (gastroesophageal reflux disease) Surgical History Hx of laparoscopic partial gastrectomy Social History Household Members: Significant Other Housing: Apartment Are you a primary care transition coordinator to a significant other at home: No Do you presently have visiting nurse or other home services: No Patient Tobacco Use Status: Former Tobacco user Tobacco use type: Cigarette Second Hand Smoke Exposure: No
--- NOTE | 2024-03-24 15:08 | A.OFFVIS_ITS ---
Intake Visit Reasons: (TV) PO LSG 02/12/24 *See Comments* Allergies No Known Allergies Allergy (Verified 03/19/24 11:45) Medication List - Last Reconciled 03/24/24 by WANDA Kevin docusate sodium 100 mg PO BID iron,carbonyl-vitamin C 65 mg iron- 125 mg (Vitron-C) 1 tab PO DAILY ondansetron 4 mg PO Q8H PRN pantoprazole 40 mg PO DAILY@0630 sucralfate 10 mL PO BID HPI Comments Details: Pt is s/p LSG 02/12/2024. Follow up for poor PO tolerance, nausea, fever. Pt spoke to Andrew over the weekend with updates. Doing better overall. No fevers, no vomiting, no diarrhea. No nausea currently. Tolerating water and protein water, has not tried shakes. Did have an episode of lightheadedness earlier (went back to work) but feels better now. Took iron pill this morning. Able to get 3 protein jones per day plus water. Getting probably almost 60oz fluid. [facility] Medical History (Updated 03/20/24 @ 00:02 by Alesha Ortega) BMI 34.0-34.9,adult Anemia Depression GERD (gastroesophageal reflux disease) Surgical History Hx of laparoscopic partial gastrectomy Social History Household Members: Significant Other Housing: Apartment Are you a primary nurse healthcare manager to a significant other at home: No Do you presently have visiting nurse or other home services: No Patient Tobacco Use Status: Former Tobacco user Tobacco use type: Cigarette Second Hand Smoke Exposure: No Telehealth Telehealth Telehealth Platform: Telephone Location of provider rendering services: other Location of patient: other Patient Identification confirmed using: Name, : Yes Telehealth method: voice only Patient verbally consented to treatment: Yes Patient verbally consented to billing insurance company: Yes Patient informed of any privacy concerns related to visit: Yes Minutes spent on Phone/Video with Pt.: 15 Assessment & Plan Assessment & Plan (1) Dehydration: Code(s): E86.0 - Dehydration Category: Medical (2) S/P laparoscopic sleeve gastrectomy: Code(s): Z98.84 - Bariatric surgery status Category: Surgical (3) Obesity: Code(s): E66.9 - Obesity, unspecified Category: Medical Qualifiers: Obesity type: due to excess calories Obesity classification: adult class 2 (BMI 35 - 39.9) Serious obesity comorbidity presence: without serious comorbidity Body mass index: BMI 36.0-36.9 Qualified Code(s): E66.09 - Other obesity due to excess calories; Z68.36 - Body mass index [BMI] 36.0-36.9, adult Plan Pt does not feel she can tolerate Celebrate shakes currently. She can continue on 3 protein jones per day and will purchase ness MVI at the [employer] shop. As she continues to recover recommended that she try to restart shake and see how she tolerates. Take iron at night instead of in AM. If she needs additional time out of work I told her we could provide another work note for this week. I will contact her next Sunday to check in. She knows she can call the office if anything changes/worsens prior to that. I spent a total of 30 minutes reviewing/updating records, examining the patient and counseling the patient on weight management as detailed above.
== END 2024-03-24 15:26 | disposition home or self-care (01) ==
LOC: HO.HBS 15:15
PROVIDERS: Visit Provider Physician Assistant Surgical
DX: E86.0 Dehydration (principal); E66.09 Other obesity due to excess calories; Z68.36 Body mass index [BMI] 36.0-36.9, adult; Z98.84 Bariatric surgery status
CPT/HCPCS: 99024

== ENCOUNTER → 2024-03-24 15:15 | Outpatient (BNVA) | payer OTHER, SELFPAY | PROVIDERS: Visit Provider Physician Assistant Surgical | DX: Z98.84 Bariatric surgery status (principal); R42 Dizziness and giddiness ==

== ENCOUNTER 2024-04-01 08:45 | Outpatient (REF) | payer OTHER, SELFPAY ==
[2024-04-01 10:58] LABS: MANUAL DIFF FLAG NO
[2024-04-01 11:20] LABS: Basophils Absolute Auto 0.1 X10*3/uL (0.0-0.2); Basophils Percent Auto 0.7 % (0-2); Eosinophils Absolute Auto 0.2 X10*3/uL (0.0-0.4); Eosinophils Percent Auto 3.5 % (0-4); Hematocrit 38.1 % (37.0-47.0); Hemoglobin 11.8 g/dl (12.0-16.0); Imm Gran Abs Auto 0.01 X10*3/uL (0.00-0.03); Imm Gran Pct Auto 0.1 % (0.0-0.4); Lymphocytes Absolute Auto 2.7 X10*3/uL (1.2-4.9); Lymphocytes Percent Auto 38.8 % (20-40); Mean Corpuscular Hemoglobin 24.7 pg (27.0-33.0); Mean Corpuscular Volume 79.7 fL (80.0-98.0); Mean Platelet Volume 11.6 fL (9.4-12.3); Monocytes Absolute Auto 0.7 X10*3/uL (0.1-1.2); Monocytes Percent Auto 9.7 % (2-11); Neutrophils Absolute Auto 3.3 x10*3/uL (2.0-8.3); Neutrophils Percent Auto 47.2 % (45-73); Platelet Count 285 X10*3/uL (160-400); Red Blood Count 4.78 X10*6/uL (4.20-5.50); Red Cell Distribution Width 17.4 % (11.0-16.0); White Blood Count 6.9 X10*3/uL (4.8-10.8)
[2024-04-01 11:35] LABS: Alanine Aminotransferase 27 U/L (0-31); Albumin Level 3.9 g/dL (3.5-5.0); Alkaline Phosphatase 94 U/L (39-117); Anion Gap 14 (12-20); Aspartate Amino Transferase 18 U/L (5-31); Bilirubin Total 0.3 mg/dL (0.0-1.0); Blood Urea Nitrogen 13 mg/dL (9-16); Calcium 9.8 mg/dL (8.4-10.2); Carbon Dioxide 24 mmol/L (22-29); Chloride 107 mmol/L (96-108); Estimated Glomerular Filt Rate > 60; Glucose Random 89 mg/dL (60-115); Potassium 3.8 mmol/L (3.3-5.1); Sodium 141 mmol/L (135-145)
== END 2024-04-01 08:46 | disposition home or self-care (01) ==
LOC: HO.HHCL 08:45
PROVIDERS: Visit Provider Physician Assistant Surgical
DX: E86.0 Dehydration (principal); R42 Dizziness and giddiness; Z98.84 Bariatric surgery status
CPT/HCPCS: 36415; 80053; 85025